=== PATIENT | female | born 1955 | race Caucasian/White ===

== ENCOUNTER 2020-05-26 22:59 | Inpatient (IN) | payer MEDICARE, OTHER, SELFPAY ==
[2020-05-26 23:00] VITALS: BP 167/113; PULSE 100; RESP 28; TEMP 36.3; O2SAT 88; BMI 42.0
[2020-05-26 23:02] VITALS: BP 161/91; PULSE 100; RESP 19; TEMP 36.3; O2SAT 95
[2020-05-26 23:19] VITALS: PULSE 97
--- NOTE | 2020-05-26 23:24 | EKG12_ITS ---
Test Reason : CP ADMISSION Blood Pressure : / mmHG Vent. Rate : 088 BPM Atrial Rate : 088 BPM P-R Int : 126 ms QRS Dur : 076 ms QT Int : 374 ms P-R-T Axes : -14 -62 012 degrees QTc Int : 452 ms Normal sinus rhythm Left axis deviation Nonspecific ST abnormality Abnormal ECG When compared with ECG of 26-MAY-2020 23:09, MANUAL COMPARISON REQUIRED, DATA IS UNCONFIRMED Confirmed by BEULAH PECK, EVER ([id number]), production editor JOSE MOMIN ([id number]) on 05/27/2020 1:52:16 PM Referred By: THOMAS Confirmed By:EVER RIOJAS MD
--- NOTE | 2020-05-26 23:25 | RAD_ITS ---
STUDY: X-RAY CHEST REASON FOR EXAM: Female, 65 years old. chest pain TECHNIQUE: PA and lateral COMPARISON: None. FINDINGS: The lungs demonstrate no focal lung consolidative changes. There is several right hilar nodular densities largest measuring approximately 1 cm. There is no demonstrated pleural abnormality. Normal size heart. Normal mediastinum and demetri. Normal visualized pulmonary arteries. Normal visualized aortic arch and descending thoracic aorta. There are diffuse degenerative changes of the visualized thoracic spine. Normal visualized ribs, clavicles, and shoulders. There is no demonstrated abnormality of the visualized soft tissue structures of the upper abdomen. RAD/Chest PA and Lateral IMPRESSION: No focal lung consolidative changes. Several right infrahilar nodular densities the image largest measuring 1 cm projecting over the right 9th rib. Recommend follow-up CT chest to exclude underlying pulmonary nodule. Electronically Signed: Slava Meraz MD at 0:00 EDT Tel , Service support ,
--- NOTE | 2020-05-26 23:26 | ED.DCSUM_ITS ---
History of Present Illness Chief Complaint: Shortness of Breath Informant: Patient Onset: Today Narrative: She stated she has been doing with heartburn for last 7 days. She had a heartburn attack this evening after dinner. She went to the bedroom and try to get comfortable after taking Pepcid and Tums. It was able to subside that she felt some substernal chest heaviness and anxiety and shortness of breath. She stated she felt like she was having anxiety attack and was trying to calm down with mental exercises. This started an hour and a half ago. It has slowly subsided. She is without symptoms currently. She denies any cardiac history. She does have a history of remote hypertension but is been off hypertension medicines for 1 year. Denies diabetes or high cholesterol. She does have obesity. Denies family history of her early coronary artery disease. Remote history of DVT postoperative approximately 15 years ago. Has never had a hypercoagulable problem since then. She is never had a recurrence. No recent long distance trips or DVT risk factors at this time other than remote DVT. She has never had a heart cath or stress test in the past or any heart problems. No history or family history of aortic dissection. Current severity is resolved. No home treatment. Does not take aspirin. Past Medical History - Allergies and Home Meds Allergies/Adverse Reactions: Allergies cephalexin [From Keflex] Allergy (Verified 05/26/20 22:59) Itching Primary Care Physician: Azeb Shaw MD [STAFF PHYSICIAN] - Prior records reviewed: Yes Past Medical History: - - Cervical cancer in remission, remote hypertension Surgical History: - - Reviewed Lives: With Family Smoking Status: Former smoker Alcohol: None Drugs: None Review of Systems General: Denies: Chills, Fever, Sweats Eyes: Denies: Visual changes - bilaterally, Diplopia ENT: Denies: Rhinorrhea, Sore throat Cardiovascular: Reports: Chest pain. Denies: Palpitations Respiratory: Reports: Dyspnea. Denies: Cough, Dyspnea on exertion Gastrointestinal: Denies: Abdominal pain, Nausea, Vomiting, Diarrhea, Melena, Hematochezia Genitourinary: Denies: Dysuria, Hematuria, Frequency Musculoskeletal: Denies: Back pain, Extremity Pain Skin: Denies: Rash, Wounds Neurological: Denies: Headache, Weakness, Numbness Psych: Reports: Anxiety Physical Exam Vital Signs/Narrative: Vital Signs Temp Pulse Resp BP Pulse Ox 05/26/20 23:19 97 05/26/20 23:02 97.3 F L 100 19 H 161/91 H 95 05/26/20 23:00 97.3 F L 100 28 H 167/113 H 88 General: Well nourished, Well developed, No Acute Distress Head: Normocephalic, Atraumatic Eyes: Perrl, EOMI ENT: Moist mucous membranes, No rhinorrhea Neck: Supple, Nontender Cardiovascular: Regular rate, Regular rhythm, No murmurs Respiratory: No distress, CTA bilaterally, Chest nontender Abdomen: Soft, Nontender, Nondistended, Normal bowel sounds Back: Nontender, Normal Inspection Extremities: Nontender, No edema Skin: Normal color, No rash Neurological: Alert, Oriented x3, Cranial nerves II-XII grossly intact, Normal Strength, Normal Sensation Psychological: Normal affect, Normal Mood Diagnostic/Tx/Re-eval - Medical Decision Making EKG obtained on arrival shows sinus tachycardia rate of 102. ST depression noted V4 through V6. No Previous to compare to. No STEMI. Lab work and chest x-ray obtained. Given dose of aspirin upon arrival. Did not give nitroglycerin as she has no pain. Lab work shows a troponin of 1.0. T CBC and BMP otherwise showed no acute abnormalities. Chest x-ray my interpretation shows chronic findings with no acute disease or CHF. No pneumothorax. Patient given a dose of Lovenox after discussing the case with the hospitalist. She has a non-ST elevation myocardial infarction. On reevaluation she is not having any pain or symptoms. Will be admitted - Critical Care Time Critical care time (excluding procedures): 75-104 minutes, Discussing w/Consultants, Arranging Admission or Transfer ED Disposition - Plan for ED Patient: Disposition: Acute Care Hospital [facility] Diagnosis: Acute coronary syndrome, Non-ST elevation myocardial infarction (NSTEMI)
[2020-05-26 23:29] VITALS: O2SAT 97
[2020-05-26] MEDS: Aspirin 81 MG TAB.CHEW 324 MG PO (23:35)
[2020-05-26 23:36] VITALS: BP 166/66; RESP 23; O2SAT 96
[2020-05-26 23:36] LABS: Absolute Lymphocyte Count 1.33 X10^3/uL (0.83-4.51); Basophil# 0.07 X10^3/uL; Basophil% 0.6 % (0-1); Eosinophil# 0.16 X10^3/uL; Eosinophils% 1.3 % (0-5); Hematocrit 44.7 % (37-47); Hemoglobin 14.4 g/dL (12.0-15.0); Lymphocyte # 1.33 X10^3/ul (4.0); Lymphocyte % 10.9 % (19-41); Mean Corp Hgb Conc 32.2 g/dL (32-36); Mean Corpuscular Hgb 29.8 pg (27.0-32.0); Mean Corpuscular Volume 92.5 fL (81-99); Mean Platelet Vol. 11.1 fl (6.2-12.0); Monocyte% 4.1 % (0-10); NRBC Flagged by Analyzer 0 % (0-5); Neutrophil # 10.01 X10^3/uL (2.7-7.7); Neutrophil % 82.1 % (47-70); Platelet Count 219 K/mm3 (150-450); RBC Distribution Width CV 13.9 % (11.6-14.6); RBC Distribution Width SD 47.6 fl (35.1-43.9); Red Blood Count 4.83 M/mm3 (4.2-5.4); White Blood Count 12.2 K/mm3 (4.4-11.0)
[2020-05-27] VITALS (23 sets, daily range): BP systolic 115–176; BP diastolic 37–101; PULSE 67–92; RESP 16–23; TEMP 36.3–36.9; O2SAT 95–99; BMI 46.7; BMI 46.8
[2020-05-27] LABS: Anion Gap 7 (5-15); BUN 25 mg/dL (7-18); BUN/Creat Ratio 23.4 RATIO (10-20); Calcium,Total 9.1 mg/dL (8.5-10.1); Chloride 104 mmol/L (98-107); Creatinine, Serum 1.07 mg/dL (0.55-1.02); EST Glomerular Filtration Rate 54 mL/min (>60); Est Glom Filt Rate - Afr Amer 66 mL/min (>60); Estimated Creatinine Clearance 40.35 ml/min; Glucose 209 mg/dL (74-106); Potassium 3.6 mmol/L (3.5-5.1); Sodium Level 140 mmol/L (136-145)
--- NOTE | 2020-05-27 00:49 | HP.PCM_ITS ---
Problem List (1) Non-ST elevation myocardial infarction (NSTEMI) Status: Acute (2) DM (diabetes mellitus), type 2 Status: Chronic (3) Hypertension Status: Chronic (4) Chronic kidney disease (CKD), stage III (moderate) Status: Suspected (5) GERD (gastroesophageal reflux disease) Status: Chronic (6) Morbid obesity with BMI of 40.0-44.9, adult Status: Chronic (7) History of uterine cancer Status: Resolved (8) History of cervical cancer Status: Resolved History of Present Illness Date of Admission: 05/27/20 Chief Complaint: Chest pressure, shortness of breath The patient is a 65 year old F presents today with chest heaviness and shortness of breath. Patient states that this feeling started out as heartburn-like but subsequently she began to have a heaviness on her chest and became short of breath. Symptoms began approximately 90 minutes prior to her arrival in the ER. Patient denies cardiac history but has had hypertension in the past. Patient states she lost 100 pounds and since then has not been on any blood pressure medication however in the past year she has put 30 pounds back on. 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 Remote history of DVT postoperatively approximately 15 years ago without recurrence. Patient currently sitting in bed in ER, reports symptoms have resolved. Patient on 2 L nasal cannula oxygen which she states has helped. Lovenox 100 mg subcu x1 given in ER, will continue on floor. Patient denies symptoms at this time. 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 Denies: Chest Pain, P alpitations Respiratory: Reports: Shortness of Breath - Resolved with O2 administration. Denies: Cough, Sputum production Gastrointestinal: Denies: Abdominal Pain, Nausea, Vomiting Genitourinary: Denies: Dysuria Musculoskeletal: Denies: Joint Pain, Joint Tenderness Skin: Denies: Rash, Wounds Neurological: Denies: Numbness, Tingling, Focal weakness Psychiatric: Reports: Anxiety - Associated with shortness of breath and chest heaviness. Denies: Depression, Homicidal Ideations, Suicidal Ideations Hematologic/ Lymphatic: Denies: Easy Bruising, Easy Bleeding VTE Information - Inpt Only VTE Present on Admission: No VTE Mechan Device Prophylaxis: SCD's VTE Pharm Prophylaxis ordered?: Yes Patient Problems: Active and Suspected Problems Non-ST elevation myocardial infarction (NSTEMI) (Acute) Chronic kidney disease (CKD), stage III (moderate) (Suspected) - Physical Exam Vitals/I&O's: Vital Signs Temp Pulse Resp BP Pulse Ox 97.3 F L 97 23 H 166/66 H 96 05/26/20 23:02 05/26/20 23:19 05/26/20 23:36 05/26/20 23:36 05/26/20 23:36 Oxygen Flow Rate (L/min) 1 Oxygen Delivery Method Nasal Cannula Weight: 230 lb Body Mass Index (BMI) 42.0 General: Alert, Oriented x3, Cooperative HEENT: Atraumatic, PERRLA, EOMI, Normocephalic Neck: Supple, No JVD, Negative Carotid Bruits Lungs: Clear to auscultation, Normal air movement, Tachypneic Cardiovascular: Regular rate, Regular Rhythm, Normal S1, Normal S2, No murmurs, - - EKG shows ST depression in leads III through 6 Abdomen: Bowel Sounds Present, Soft, Non Tender Extremities: No edema, Capillary Refill Less than 3 Seconds, Peripheral Pulses Normal Skin: No rashes, No breakdown Musculoskeletal: No Tenderness to Palpation of Joints or Extremities Neurological: Cranial nerves II-XII grossly intact Psych/Mental Status: Normal Affect, Appropriate, - - Patient tearful and overwhelmed when discussing diagnosis Laboratory Results 05/26/20 23:30: WBC 12.2 H, RBC 4.83, Hgb 14.4, Hct 44.7, MCV 92.5, MCH 29.8, MCHC 32.2, RDW Std Deviation 47.6 H, RDW Coeff of Lb 13.9, Plt Count 219, MPV 11.1, Immature Gran % (Auto) 1.000 H, Neut % (Auto) 82.1 H, Lymph % (Auto) 10.9 L, [place] % (Auto) 4.1, Eos % (Auto) 1.3, Baso % (Auto) 0.6, Absolute Neuts (auto) 10.0 H, Absolute Lymphs (auto) 1.33, Nucleated RBC % 0 05/26/20 23:30: Sodium 140, Potassium 3.6, Chloride 104, Carbon Dioxide 29.0, Anion Gap 7, BUN 25 H, Creatinine 1.07 H, Estim Creat Clear Calc 40.35, Est GFR (MDRD) Af Amer 66, Est GFR (MDRD) Non-Af 54 L, BUN/Creatinine Ratio 23.4 H, Glucose 209 H, Calcium 9.1, Troponin I 1.000 H* Assessment/Plan All Active Problems Acute coronary syndrome (Acute) Non-ST elevation myocardial infarction (NSTEMI) (Acute) History of cervical cancer (Resolved) History of uterine cancer (Resolved) 1. Non-ST elevation myocardial infarction -Initial troponin 1.0, will trend cardiac enzymes overnight -Initial EKG shows sinus rhythm with ST depression in leads III through 6. Patient will be admitted to PCU with telemetry -Echocardiogram ordered for the morning -Consult cardiology -Will keep n.p.o. overnight pending cardiology consult. -Continue subcu Lovenox. -Lipid profile, in a.m. -PT/INR, PTT ordered. 2. Diabetes mellitus type 2 new onset -Denies history, CMP glucose 209 -Hemoglobin A1c ordered -AC at bedtime blood sugar checks with sliding scale insulin ordered 3. Hypertension -Patient has remote history but currently not on any medication, BP in ER 170/96 -Carvedilol and lisinopril initiated. Hydralazine IV ordered as needed. 4. Chronic kidney disease, stage III-suspected -No prior labs available -CMP in a.m. 5. GERD -Continue pantoprazole 6. Morbid obesity with BMI of 40.0-44.9, adult -Consult nutrition 7. History of cervical and uterine cancer, in remission?no recurrence DVT prophylaxis-SCDs, subcu Lovenox This patient was seen by Daniela Gallegos NP-C under the supervision of Dr. Vickers.
[2020-05-27] MEDS: Enoxaparin 100 MG/ML Syringe SC (00:57)
--- NOTE | 2020-05-27 01:34 | ECHOCS_ITS ---
Reason For Study: Chest Pain Procedure This was a 2D Doppler, Color Flow transthoracic echocardiogram. The study was technically difficult. Contrast injection was performed. Exam performed portable in patient room. Left Ventricle Normal LV size. Moderate concentric left ventricular hypertrophy. Left ventricular systolic function is normal. The estimated ejection fraction is 65 %. Stage 2 diastolic dysfunction. No regional wall motion abnormalities noted. Right Ventricle Normal RV size. Normal systolic function. Atria The left atrium is mildly enlarged. Normal right atrium. Mitral Valve There is moderate mitral annular calcification. Mild-Moderate (1-2+) eccentric mitral valve insufficiency. Tricuspid Valve Normal tricuspid valve. Mild (1+) tricuspid valve insufficiency. Pulmonary artery systolic pressure is 35 mmHg. Aortic Valve Trisinus/trileaflet aortic valve. Mild focal aortic valve calcification. Pulmonic Valve The pulmonic valve is not well visualized. Great Vessels Normal aortic root. The pulmonary artery is normal size. Normal inferior vena cava. Pericardium/Pleural No pericardial effusion. Medication Diluted definity 2ml given slow IV push to enhance endocardial definition. MMode/2D Measurements & Calculations LVIDd: 3.6 cm IVSd: 1.4 cm Ao root diam: 2.4 cm LVIDs: 2.4 cm LVPWd: 1.3 cm FS: 35.1 % LAV(MOD-bp): 79.0 ml LA A4 area: 23.7 cm2 LA dimension(2D): 4.3 cm LAV(MOD-bp) Indexed: 37.3 ml/m2 LAV(MOD-sp2): 77.4 ml LAV(MOD-sp4): 70.3 ml Time Measurements MV dec time: 0.28 sec Doppler Measurements & Calculations MV E max jonah: 144.7 cm/sec Lat Peak E' Jonah: 4.5 cm/sec Med Peak E' Jonah: 3.4 cm/sec MV A max jonah: 87.8 cm/sec E/E' lat: 32.5 E/E' med: 42.3 MV E/A: 1.6 MV V2 max: 145.0 cm/sec MV P1/2t max jonah: 143.7 cm/sec Ao V2 max: 135.7 cm/sec MV max P.4 mmHg MV P1/2t: 82.7 msec Ao max P.4 mmHg MV V2 mean: 84.3 cm/sec MV dec slope: 508.5 cm/sec2 Ao V2 mean: 97.8 cm/sec MV mean P.3 mmHg Ao mean P.2 mmHg MV V2 VTI: 37.7 cm MVA(P1/2t): 2.7 cm2 Ao V2 VTI: 28.5 cm LV V1 max: 109.9 cm/sec PA V2 max: 60.8 cm/sec TR max jonah: 276.6 cm/sec LV V1 max P.8 mmHg TR max P.6 mmHg Interpretation Summary Normal LV size. Moderate concentric left ventricular hypertrophy. Left ventricular systolic function is normal. The estimated ejection fraction is 65 %. Stage 2 diastolic dysfunction. Contrast injection was performed. Ordering Physician: Cayla Vickers Referring Physician: Lennox Greenberg Performed By: Cathie Dewey RDCS, RVT
--- NOTE | 2020-05-27 01:34 | EKG12_ITS ---
Test Reason : CP Blood Pressure : / mmHG Vent. Rate : 102 BPM Atrial Rate : 102 BPM P-R Int : 134 ms QRS Dur : 078 ms QT Int : 350 ms P-R-T Axes : 066 -63 065 degrees QTc Int : 456 ms Sinus tachycardia Left axis deviation Nonspecific ST abnormality Abnormal ECG Confirmed by BEULAH PECK, EVER ([id number]), online content editor JOSE MOMIN ([id number]) on 05/27/2020 1:57:21 PM Referred By: DIMITRI Confirmed By:EVER RIOJAS MD
[2020-05-27 01:48] LABS: International Normalized Ratio 1.1; Prothrombin Time (Protime)PT. 13.4 SECONDS (11.7-14.9)
[2020-05-27 01:49] LABS: Partial Thromboplast Time 28.5 Seconds (24.1-36.2)
[2020-05-27] MEDS: 0.9% Normal Saline 1,000 ML 100 ML IV ×3 (02:02→22:48)
[2020-05-27] MEDS: Carvedilol 6.25 MG Tablet PO ×3 (02:03→20:36)
[2020-05-27] MEDS: Lisinopril 5 MG Tablet PO (02:03)
[2020-05-27] MEDS: Pantoprazole Sodium 20 MG Tablet PO ×3 (02:03→22:50)
[2020-05-27 05:41] LABS: Absolute Neutrophil Count 8.8 X10^3/uL (2.0-7.7); Basophil# 0.06 X10^3/uL; Basophil% 0.5 % (0-1); Eosinophil# 0.07 X10^3/uL; Eosinophils% 0.6 % (0-5); Hematocrit 43.1 % (37-47); Hemoglobin 13.9 g/dL (12.0-15.0); Lymphocyte % 16.6 % (19-41); Mean Corp Hgb Conc 32.3 g/dL (32-36); Mean Corpuscular Hgb 30.3 pg (27.0-32.0); Mean Corpuscular Volume 93.9 fL (81-99); Mean Platelet Vol. 10.9 fl (6.2-12.0); Monocyte# 0.57 X10^3/uL; NRBC Flagged by Analyzer 0 % (0-5); Neutrophil # 8.75 X10^3/uL (2.7-7.7); Neutrophil % 76.5 % (47-70); Platelet Count 233 K/mm3 (150-450); RBC Distribution Width CV 13.9 % (11.6-14.6); Red Blood Count 4.59 M/mm3 (4.2-5.4); White Blood Count 11.4 K/mm3 (4.4-11.0)
[2020-05-27 06:01] LABS: ALB/GLOB Ratio 0.8 RATIO (0.9-2.4); AST(SGOT) 53 U/L (15-37); Alanine Aminotransfer ALT/SGPT 25 U/L (13-56); Albumin, Serum 3.2 g/dL (3.2-5.0); Alkaline Phosphatase 90 U/L (45-117); Anion Gap 4 (5-15); BUN 20 mg/dL (7-18); BUN/Creat Ratio 22.8 RATIO (10-20); Calcium,Total 8.9 mg/dL (8.5-10.1); Chloride 107 mmol/L (98-107); Cholesterol 175 mg/dL (200); Creatinine, Serum 0.88 mg/dL (0.55-1.02); EST Glomerular Filtration Rate 69 mL/min (>60); Est Glom Filt Rate - Afr Amer 83 mL/min (>60); Estimated Creatinine Clearance 49.06 ml/min; Globulin 4.1 g/dL (2.2-4.2); Glucose 119 mg/dL (74-106); High Density Lipoprotein 39 mg/dL; Protein, Total 7.3 g/dL (6.4-8.2); Sodium Level 142 mmol/L (136-145); Triglycerides 175 mg/dL; Very Low Density Lipoprotein 35 mg/dL (5-40)
[2020-05-27 06:56] LABS: Bedside Glucose 122 mg/dL (70-110)
--- NOTE | 2020-05-27 07:38 | CON.PCM_ITS ---
Reason for Consult Date of Consultation: 05/27/20 Reason for Consultation: Heartburn and chest discomfort History of Present Illness: The patient is a 65 year old F who presented to the emergency room after experiencing heartburn. She says that this was pretty severe she thought she was having an anxiety attack. She has been having heartburn over the last 7 days also and has been taking Tums as well as Pepcid with no significant relief. She previously was diagnosed as hypertensive but has been off hypertensive medications for over a year. She did have a postoperative DVT in the left leg a number of years ago. She has had no dizziness or diaphoresis no near syncope or syncope. When she presented to the hospital she was noted to have abnormal EKG with ST changes. Her cardiac troponin enzymes were also noted to be abnormal. Cardiology was asked to see her. 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 Denies: Shortness of Breath, Orthopnea, PND, Peripheral Edema, Palpitations, Lightheadedness, Dizziness, Near Syncope, Syncope Respiratory: Denies: Cough, Sputum Production, Hemoptysis Gastrointestinal: Reports: Heart Burn. Denies: Hematemesis, Hematochezia, Melena Genitourinary: Denies: Dysuria, Hematuria Skin: Denies: Rash Neurological: Denies: Dizziness Psychiatric: Denies: Anxiety Endocrine: Denies: Unexplained Weight Loss Subjectve: Pleasant lady in no distress at this time Objective: Vital Signs Temp Pulse Resp BP Pulse Ox 98.1 F 76 18 115/37 L 98 05/27/20 06:40 05/27/20 06:40 05/27/20 06:40 05/27/20 06:40 05/27/20 07:14 Oxygen Flow Rate (L/min) 2 Oxygen Delivery Method Nasal Cannula Weight: 255 lb 4.725 oz Body Mass Index (BMI) 46.7 Intake and Output for Last 24 Hours 05/25/20 05/26/20 05/27/20 23:59 23:59 23:59 Intake Total 50 / 50 Balance 50 / 50 General: Awake, Alert, Oriented x 3 HEENT: PERRL, EOMI, Sclera Non Icteric Neck: Supple, Good ROM, No Lymph Node Enlargement Lungs: Clear to auscultation Cardiovascular: Regular Rhythm, Normal S1, Normal S2, No Murmurs, No Rubs, No Gallops Vascular: No Carotid Bruits, Normal Femoral Pulses, Normal Radial Pulses, Normal Dorsalis Pedal Pulse, Normal Posterior Tibial Pulses Abdomen: Bowel Sounds Present, Soft, Non Tender, No HSM, No Organomegaly Extremities: No Cyanosis, No Clubbing, No edema Neurological: No Focal Motor or Sensory Deficit 05/26/20 23:30: WBC 12.2 H, RBC 4.83, Hgb 14.4, Hct 44.7, MCV 92.5, MCH 29.8, MCHC 32.2, Plt Count 219, MPV 11.1, Immature Gran % (Auto) 1.000 H, Neut % (Auto) 82.1 H, Lymph % (Auto) 10.9 L, [place] % (Auto) 4.1, Eos % (Auto) 1.3, Baso % (Auto) 0.6, Absolute Neuts (auto) 10.0 H, Nucleated RBC % 0 05/26/20 23:30: Sodium 140, Potassium 3.6, Chloride 104, Carbon Dioxide 29.0, Anion Gap 7, BUN 25 H, Creatinine 1.07 H, Est GFR (MDRD) Af Amer 66, Est GFR (MDRD) Non-Af 54 L, BUN/Creatinine Ratio 23.4 H, Glucose 209 H, Calcium 9.1, Troponin I 1.000 H* 05/26/20 23:30: PT 13.4, INR 1.1, APTT 28.5 05/26/20 23:30: Magnesium 2.0 05/27/20 02:10: Troponin I 4.770 H* 05/27/20 05:36: WBC 11.4 H, RBC 4.59, Hgb 13.9, Hct 43.1, MCV 93.9, MCH 30.3, MCHC 32.3, Plt Count 233, MPV 10.9, Immature Gran % (Auto) 0.800, Neut % (Auto) 76.5 H, Lymph % (Auto) 16.6 L, [place] % (Auto) 5.0, Eos % (Auto) 0.6, Baso % (Auto) 0.5, Absolute Neuts (auto) 8.8 H, Nucleated RBC % 0 05/27/20 05:36: Sodium 142, Potassium 4.0, Chloride 107, Carbon Dioxide 31.0, Anion Gap 4 L, BUN 20 H, Creatinine 0.88, Est GFR (MDRD) Af Amer 83, Est GFR (MDRD) Non-Af 69, BUN/Creatinine Ratio 22.8 H, Glucose 119 H, Calcium 8.9, Total Bilirubin 0.40, Triglycerides 175, Cholesterol 175, LDL Cholesterol 101, VLDL Cholesterol 35, HDL Cholesterol 39 L 05/27/20 05:36: Troponin I 9.490 H* Rhythm: EKG: ECHO: Stress Test: Cardiac Cath: PCI: CT Surgery: Holter monitor: EPS: PPM: CXR: Chest CT Scan: Assessment/Plan 1. Non-ST elevation myocardial infarction * Patient presents with epigastric discomfort and heartburn with abnormal EKG and cardiac enzymes suggestive of non-ST elevation myocardial infarction. * My recommendation at this time would be to start aspirin * Start low-dose beta-sukumar * High intensity statin * Will consider patient for cardiac catheterization this morning. Risk benefits and alternatives have been explained to her she understands and agrees to proceed. * * * Addendum: Cardiac catheterization demonstrated the following. Left main coronary with mild calcification and no significant disease. Left anterior descending artery with moderate mid segment disease. Left circumflex artery with high-grade mid 99% stenotic lesion. Dominant right coronary artery with proximal to mid 80% stenosis. Preserved ejection fraction. Based on the above angiographic findings the patient would have PCI to the left circumflex artery and perhaps the right coronary artery. * Thank you for allowing me to participate in the care of your patient. Please don't hesitate to call if any issues arise.
[2020-05-27] MEDS: Aspirin E.C. 81 MG Tablet PO (07:42)
[2020-05-27 08:05] LABS: Hemoglobin A1c 5.8 % (3.8-5.6)
--- NOTE | 2020-05-27 08:15 | NURSING ---
gave report to mary AYON in labor operator
--- NOTE | 2020-05-27 09:20 | CL.D_ITS ---
Patient Name: JULIA MARQUEZ Study Date: 05/27/2020 Performing: Robert Nguyen MD Ht: 61.81 inches 157 cm : 1955 Wt: 255.74 lbs 116 kg Age: 65 Gender: female BSA: 2.12 PROCEDURE(S) PERFORMED FQ85-LCT/COR/LV CLINICAL PROFILE AND INDICATIONS Indications: Suspected CAD, ACS <= 24 hrs Heart Failure: None CONCLUSIONS Severe disease involving the mid left circumflex artery, moderate disease in the left anterior descen ding artery, moderately severe disease involving a dominant right coronary artery. RECOMMENDATIONS Referred for immediate PCI DESCRIPTION OF PROCEDURE The patient arrived to the procedure lab. The risks and benefits of the procedure as well as a full d escription of our services here and current unavailability of surgical backup were fully explained to the patient and/or their significant other prior to the catheterization. The Timeout was completed, verifying the correct patient and procedure. The patient's procedural site was prepped and draped in the usual fashion. Local anesthetic was given subcutaneously to right radial region with Lidocaine 2% . Using a modified Seldinger technique, arterial access was obtained via the right radial artery, a 6 Fr sheath was inserted. Right Coronary Artery selective angiography was then performed in multiple v iews using a 5 Fr. 4.0 [place] catheter. Left Coronary Artery selective angiography was performed in mu ltiple views using a 5 Fr. 4.0 [place] catheter. Left Ventriculography was performed in LEW projection using a 5 Fr. Pigtail catheter. LV to AO pullback pressures were then recorded. CORONARY ANGIOGRAPHY DOMINANCE: Right Dominant LEFT HEART ASSESSMENT Left Ventricular Ejection Fraction: by LV Gram 60 % Normal LV wall motion Normal Left Ventricular systolic function LEFT MAIN: Mild calcification, Angiographically normal LEFT ANTERIOR DESCENDING ARTERY: MID LAD: Mild luminal irregularities less than 30% DISTAL LAD: small vessel CIRCUMFLEX ARTERY: MID CIRC: 99 % Stenosis RIGHT CORONARY ARTERY: PROX RCA: Diffusely diseased up to 80 % DISTAL RCA: Mild luminal irregularities less than 30% VALVE FINDINGS: Mitral Valve Calcification Severe COMPLICATIONS PROCEDURE MEDICATIONS Fentanyl 50 mcg IV Versed 1 mg IV Versed 1 mg IV Versed 1 mg IV Oxygen: 2 L/min via nasal cannula Brilinta 180 mg PO @ 05/27/2020 09:14:32 Heparin diluted in 23cc Heparinized saline. Patient given 10cc IA of this solution. 05/27/2020 08:41: 45 Verapamil 2.5mg, Ntg 100mcgs, 2000 units of Heparin diluted in 23cc Heparinized saline. Patient give n 10cc IA of this solution. 05/27/2020 08:41:45 SUMMARY OF HEMODYNAMIC DATA Time AIR REST ECG 08:26:36 AO 131/71 (97) SA 08:56:13 LV 120/11, 21 09:05:18 LV 114/12, 25 09:05:32 LV 115/12, 20 09:06:53 LV 118/14, 24 09:06:59 LVp 117/12, 19 09:07:05 AOp 113/62 (85) 09:07:10 Signed By Robert Nguyen MD On 05/27/2020 09:19:36 Robert Nguyen MD
[2020-05-27] MEDS: Acetaminophen 325 MG Tablet 650 MG PO (11:00)
--- NOTE | 2020-05-27 11:55 | CASEMGMT ---
NANY DAI assessment: Face to Face with patient for initial transition planning/care coordination assessment. NANY DAI introduced self and role at [facility], pt voices understanding and consents to assessment. Pt is lying in bed in no distress. Pt is A/Ox4 and answers all questions appropriately. Care providers, pharmacy, and demographics verified. Presentation: Pt has had heartburn x1week and tonight began w/ chest heaviness and SOB. States she is also anxious Admitting dx: NSTEMI PCP: [facility] Specialists: Pt states no current specialists. Preferred Pharmacy: [facility] [place] Insurance: [facility] A/B, MMO Prescription Benefit: [facility] D-Envision Living Will/HPOA: Pt states does not have LW/HPOA but would like to complete AD's at this time. Martine ESPARZA aware, voices understanding. LNOK: Drake Ibrahim, Living Arrangements: Pt states lives with in 2 story home and states no concerns at home. Pt states is independent with ADL's. Transportation: Pt states drives self and states no transportation concerns. DME/HHC: Pt states no current DME or need for any DME. Pt states no hx of HHC or SNF. Pt states no concerns with going home at time of discharge. Pt is retired. Pt states does not smoke cigarettes but does drink ETOH occasionally. Pt states no further concerns/needs. CM to follow for any further discharge planning/needs. Advised pt to ask for CM if any further questions/concerns/needs arise, voices understanding. Pt Goal: Home Plan: [place] NANY DAI
--- NOTE | 2020-05-27 12:00 | EKG12_ITS ---
Test Reason : AM EKG Blood Pressure : / mmHG Vent. Rate : 068 BPM Atrial Rate : 068 BPM P-R Int : 142 ms QRS Dur : 080 ms QT Int : 454 ms P-R-T Axes : -08 -63 -64 degrees QTc Int : 482 ms Sinus rhythm with Premature atrial complexes Left axis deviation Nonspecific ST and T wave abnormality Prolonged QT Abnormal ECG When compared with ECG of 27-MAY-2020 12:18, MANUAL COMPARISON REQUIRED, DATA IS UNCONFIRMED Confirmed by BEULAH PECK, EVER ([id number]), multimedia editor JOSE MOMIN ([id number]) on 06/01/2020 1:54:10 PM Referred By: THOMAS Confirmed By:EVER RIOJAS MD
[2020-05-27 12:01] LABS: Bedside Glucose 128 mg/dL (70-110)
--- NOTE | 2020-05-27 13:37 | CL.I_ITS ---
Patient Name: JULIA MARQUEZ Study Date: 05/27/2020 Performing: Jesus Alberto Navarro MD Ht: 62 inches 157 cm : 1955 Wt: 256.1 lbs 116 kg Age: 65 Gender: female BSA: 2.12 PROCEDURE(S) PERFORMED [id number] W OR WO PTCA, SINGLE CORONARY ARTERY [id number] W OR WO PTCA, SINGLE CORONARY ARTERY CLINICAL PROFILE AND CO-MORBIDITIES Indications: Suspected CAD, ACS <= 24 hrs Heart Failure: None CONCLUSIONS Successful ADARSH to mLCX and mRCA RECOMMENDATIONS DESCRIPTION OF PROCEDURE The patient arrived to the procedure lab. The risks and benefits of the procedure as well as a full d escription of our services here and current unavailability of surgical backup were fully explained to the patient and/or their significant other prior to the catheterization. The Timeout was completed, verifying the correct patient and procedure. The patient's procedural site was prepped and draped in the usual fashion. Local anesthetic was given subcutaneously to right radial region with Lidocaine 2% Using a modified Seldinger technique,arterial access was obtained via the right radial artery, a 6Fr sheath was inserted. Right Coronary Artery selective angiography was then performed in multiple view s using a 5 Fr. 4.0 [place] catheter. Left Coronary Artery selective angiography was performed in multi ple views using a 5 Fr. 4.0 [place] catheter. Left Ventriculography was performed in LEW projection usi ng a 5 Fr. Pigtail catheter. LV to AO pullback pressures were then recorded. XB 3.0 Guide catheter was inserted and engaged into the LCA. BMW [place] Guide wire was advanc ed to the Circumflex. Emerge 2.5 x 12 Balloon catheter was inserted. Balloon catheter was advanced ac ross lesion in the circumflex, distal. PTCA balloon inflated at 6 atms for 8 secs. Angiogram performe d post balloon dilatation. Synergy 3.0 x 16 Drug Eluting stent was inserted. Drug Eluting stent was a dvanced across the lesion in the circumflex, distal. Angiogram performed pre stent deployment. Angiog jonelle performed post stent deployment. JR4 Guide catheter was inserted and engaged into the RCA. BMW Un iversal Guide wire was advanced to the RCA. Emerge 2.5 x 12 Balloon catheter was reinserted Balloon c atheter was advanced across lesion in the right coronary, mid. PTCA balloon inflated at 12 atms for 3 5 secs. Synergy 3.0 x 38 Drug Eluting stent was inserted. Drug Eluting stent was advanced across the lesion in the right coronary, mid. Angiogram performed pre stent deployment. The arterial sheath was pulled and a TR Band was applied for hemostasis INTERVENTION INFORMATION LESION SITE: Circumflex (Distal) Lesion Complexity: High/C, chronic total occlusion: No, lesion at bifurcation: Yes, thrombus present: No, lesion length: 14 mm, culprit lesion: Yes, Previously treated lesion: No Pre Stenosis: 95 % Pre intervention SHANNON flow: 3 PROCEDURE: Drug Eluting Stent with pre dilatation. Post Stenosis: 0 % Post intervention SHANNON flow: 3 Lesion Devices: Hammer .014 BMW [place] Straight 190cm Cardinal 6 Fr XB3.0 100cm Guide Catheter Pascual Sci EMERGE MR 2.50x12 BALLOON Pascual Sci Synergy MR ADARSH 3.00x16 LESION SITE: RCA (Mid) Lesion Complexity: High/C, chronic total occlusion: No, lesion at bifurcation: No, thrombus present: No, lesion length: 35 mm, culprit lesion: Yes, Previously treated lesion: No Pre Stenosis: 80 % Pre intervention SHANNON flow: 3 PROCEDURE: Drug Eluting Stent with pre dilatation. Post Stenosis: 0 % Post intervention SHANNON flow: 3 Lesion Devices: Hammer .014 BMW [place] Straight 190cm Pascual Sci EMERGE MR 2.50x12 BALLOON Medtronic 6 Fr JR4.0 100cm Guide Catheter Pascual Sci Synergy MR ADARSH 3.00x38 COMPLICATIONS No Complications PROCEDURE MEDICATIONS Fentanyl 50 mcg IV Versed 1 mg IV Versed 1 mg IV Versed 1 mg IV Oxygen: 2 L/min via nasal cannula Brilinta 180 mg PO @ 05/27/2020 09:14:32 Heparin diluted in 23cc Heparinized saline. Patient given 10cc IA of this solution. 05/27/2020 08:41: 45 Heparin 7000 unit(s) IV 05/27/2020 09:38:24 Verapamil 2.5mg, Ntg 100mcgs, 2000 units of Heparin diluted in 23cc Heparinized saline. Patient give n 10cc IA of this solution. 05/27/2020 08:41:45 IV Bolus: .9 NaCl 300 ml total 05/27/2020 10:18:37 SUMMARY OF HEMODYNAMIC DATA Time AIR REST ECG 08:26:36 AO 131/71 (97) SA 08:56:13 LV 120/11, 21 09:05:18 LV 114/12, 25 09:05:32 LV 115/12, 20 09:06:53 LV 118/14, 24 09:06:59 LVp 117/12, 19 09:07:05 AOp 113/62 (85) 09:07:10 Signed By Jesus Alberto Navarro MD On 05/28/2020 10:51:58 JesusA lberto Navarro MD
--- NOTE | 2020-05-27 14:17 | CRPHASE1 ---
Patient Communication PHII Cardiac Rehab Discussed with Patient:: Yes Guide to Cardiac Rehab Given to Patient:: Yes Cardiac Rehab Facility Choice List Given to Patient:: Yes Choice Program [facility] PHII:: Communication Given to CR, Refer to [facility] Proposal Editor:: Toshia Navarro - Interventionalist Refer Phase II Cardiac Rehab:: Yes Sessions:: 36 sessions - 3 days/wk, 12 weeks Cardiac Rehabilitation Info Cardiac Rehabilitation Program Information: Cardiac Rehabilitation is important for patients like you who are recovering from a heart problem. Cardiac rehabilitation programs are recognized as integral to the continued care of the patient with coronary heart disease. The cardiac rehabilitation program is designed to optimize a patient's physical, psychological, and social functioning. Health direct care staffer work in cardiac rehabilitation programs and assist you with getting the treatments you need to get stronger and healthier - like exercise, healthy eating habits, and medications. Cardiac rehabilitation has been show to help people with heart problems live longer and have better life enjoyment than people who do not go to cardiac rehabilitation. Please contact the Cardiac Rehabilitation Program at [facility] at in two weeks if you have not heard from them.
--- NOTE | 2020-05-27 14:19 | CRPH1.INSTRU ---
General Education CAD and cardiac anatomy and function:: Patient communicates acknowledgment Explanation of diagnoses and procedures:: Patient communicates acknowledgment Sign/Symptoms of NC:: Patient communicates acknowledgment Antiplatelet therapy: Patient communicates acknowledgment Proper use of NTG-SL: Patient communicates acknowledgment Emergency procedures and activation of EMS: Patient communicates acknowledgment Compliance of all prescribed medications: Patient communicates acknowledgment Smoking Patient Nicotine/Smoking Risk Factors Are:: Cigarettes Recommendations Include:: Previous smoker; encourage continued cessation Nicotine/Smoking Response Code:: Patient communicates acknowledgment Overweight/Obesity Patient Overweight/Obesity Risk Factors Are:: Obesity - > or = 30 Recommendations Include:: Weight loss of 5-10%, Reduced calorie diet, Exercise 5-7 times/week Overweight/Obesity:: Patient communicates acknowledgment Hypertension Recommendations Include:: Maintain BP <130/85, BP <130/80 if diabetic, DASH dietary guidelines, Decrease/maintain normal body weight, Moderation of ETOH Hypertension:: Patient communicates acknowledgment Diabetes Recommendations Include:: Maintain fasting blood sugars 70-110 md/dL, Maintain HgbA1c of 6% or less, Monitor blood sugar as prescribed, Diabetic dietary guidelines, Decrease/maintain body weight Diabetes:: Patient communicates acknowledgment Metabolic Syndrome Patient Metabolic Syndrome Risk Factors Are [3 of 5]:: Waist circumference > 35 [female] or 40 [male], High triglyceride >150, Hypertension, Low HDL <40 [male] or < 50 [female] Recommendations Include:: Reinforce compliance to risk factor modifications, Patient is diabetic, Encouraged follow-up with Primary Care Physician Metabolic Syndrome Response Code:: Patient communicates acknowledgment Sedentary Recommendations Include:: Aerobic exercise 5-7 times/week for 20-30 minutes continuously, Benefits of regular exercise, Discussed home walking program, Monitored Outpatient Cardiac Rehab Sedentary Response Code:: Patient communicates acknowledgment
--- NOTE | 2020-05-27 14:34 | CASEMGMT ---
Social Work SW received referral that pt would like to complete Advance Directives. SW met with pt and spouse Drake. Both requesting to make living will and health care POA. SW assisted both Pt and Drake in completing documents. Pt naming Drake as HCPOA. Pt choosing not to complete Gaurdianship section of HCPOA. Copy placed on pt chart and original given to patient. DENISE Prajapati
--- NOTE | 2020-05-27 15:05 | CASEMGMT ---
Per [facility] palliative screening tool, pt does not qualify for palliative c/s. Kristy AYON CM
--- NOTE | 2020-05-27 18:39 | PCM.HOSP.N ---
Hospitalist Note Was seen and examined earlier today, she appeared stable, her cardiac enzymes had elevated indicating a non-STEMI, patient underwent cardiac catheterization today which showed severe occlusive disease of the circumflex and right coronary artery, these were stented today, patient remained stable at the time of this dictation. Patient will be reevaluated tomorrow, echocardiogram showed a normal ejection fraction of 65%.
[2020-05-27] MEDS: Atorvastatin Calcium 80 MG Tablet PO (20:35)
[2020-05-27] MEDS: TICAGRELOR 90 MG TABLET PO (20:36)
--- NOTE | 2020-05-27 20:37 | NURSING ---
Pt requested medications early.
[2020-05-28 03:00] VITALS: PULSE 61
[2020-05-28] MEDS: 0.9% Normal Saline 1,000 ML 60 ML IV (04:58)
[2020-05-28 05:20] VITALS: BP 133/79; PULSE 72; RESP 16; TEMP 36.3; O2SAT 97
[2020-05-28 06:50] LABS: Hematocrit 38.7 % (37-47); Hemoglobin 12.4 g/dL (12.0-15.0); Mean Corpuscular Hgb 30.3 pg (27.0-32.0); Mean Corpuscular Volume 94.6 fL (81-99); Mean Platelet Vol. 11.4 fl (6.2-12.0); Platelet Count 191 K/mm3 (150-450); RBC Distribution Width CV 14.6 % (11.6-14.6); RBC Distribution Width SD 50.7 fl (35.1-43.9); Red Blood Count 4.09 M/mm3 (4.2-5.4); White Blood Count 9.1 K/mm3 (4.4-11.0)
[2020-05-28 07:01] VITALS: PULSE 82
[2020-05-28 07:21] LABS: ALB/GLOB Ratio 0.8 RATIO (0.9-2.4); AST(SGOT) 40 U/L (15-37); Alanine Aminotransfer ALT/SGPT 23 U/L (13-56); Alkaline Phosphatase 81 U/L (45-117); Anion Gap 7 (5-15); BUN 18 mg/dL (7-18); Calcium,Total 8.4 mg/dL (8.5-10.1); Chloride 108 mmol/L (98-107); EST Glomerular Filtration Rate 67 mL/min (>60); Est Glom Filt Rate - Afr Amer 81 mL/min (>60); Estimated Creatinine Clearance 47.97 ml/min; Globulin 3.8 g/dL (2.2-4.2); Glucose 141 mg/dL (74-106); Potassium 3.6 mmol/L (3.5-5.1); Protein, Total 6.8 g/dL (6.4-8.2); Sodium Level 141 mmol/L (136-145)
[2020-05-28 07:32] VITALS: O2SAT 98
[2020-05-28 09:00] VITALS: BP 121/61; PULSE 80; RESP 16; TEMP 36; O2SAT 97
[2020-05-28] MEDS: Aspirin E.C. 81 MG Tablet PO (09:38)
[2020-05-28] MEDS: Carvedilol 6.25 MG Tablet PO (09:39)
[2020-05-28] MEDS: TICAGRELOR 90 MG TABLET PO (09:39)
[2020-05-28] MEDS: Pantoprazole Sodium 20 MG Tablet PO (09:39)
[2020-05-28] MEDS: Lisinopril 5 MG Tablet PO (09:39)
--- NOTE | 2020-05-28 10:00 | EKG12_ITS ---
Test Reason : POST PCI Blood Pressure : / mmHG Vent. Rate : 068 BPM Atrial Rate : 068 BPM P-R Int : 146 ms QRS Dur : 082 ms QT Int : 416 ms P-R-T Axes : 037 -69 053 degrees QTc Int : 442 ms Normal sinus rhythm Left axis deviation Nonspecific ST and T wave abnormality Abnormal ECG When compared with ECG of 27-MAY-2020 02:04, MANUAL COMPARISON REQUIRED, DATA IS UNCONFIRMED Confirmed by BEULAH PECK, EVER ([id number]), magazine editor JOSE MOMIN ([id number]) on 06/01/2020 1:55:38 PM Referred By: STEFANIE Confirmed By:EVER RIOJAS MD
--- NOTE | 2020-05-28 10:21 | PN.CARD_ITS ---
Subjectve: Patient seen and evaluated. Appears to doing well. Objective: Vital Signs Temp Pulse Resp BP Pulse Ox 96.8 F L 80 16 121/61 H 97 05/28/20 09:00 05/28/20 09:00 05/28/20 09:00 05/28/20 09:00 05/28/20 09:00 Oxygen Flow Rate (L/min) 2 Oxygen Delivery Method Room Air Weight: 255 lb 4.725 oz Body Mass Index (BMI) 46.7 Intake and Output for Last 24 Hours 05/26/20 05/27/20 05/28/20 23:59 23:59 23:59 Intake Total 2605.01 / 2845.01 748.33 / 748.33 Balance 2605.01 / 2845.01 748.33 / 748.33 General: Awake, Alert, Oriented x 3 HEENT: PERRL, EOMI, Sclera Non Icteric Neck: Supple, Good ROM, No Lymph Node Enlargement Lungs: Clear to auscultation Cardiovascular: Regular Rhythm, Normal S1, Normal S2, No Murmurs, No Rubs, No Gallops 05/27/20 12:14: Troponin I 19.500 H* 05/28/20 06:26: WBC 9.1, RBC 4.09 L, Hgb 12.4, Hct 38.7, MCV 94.6, MCH 30.3, MCHC 32.0, Plt Count 191, MPV 11.4 05/28/20 06:26: Sodium 141, Potassium 3.6, Chloride 108 H, Carbon Dioxide 26.0, Anion Gap 7, BUN 18, Creatinine 0.90, Est GFR (MDRD) Af Amer 81, Est GFR (MDRD) Non-Af 67, BUN/Creatinine Ratio 20.0, Glucose 141 H, Calcium 8.4 L, Total Bilirubin 0.50 Rhythm: EKG: ECHO: Stress Test: Cardiac Cath: PCI: CT Surgery: Holter monitor: EPS: PPM: CXR: Chest CT Scan: Medical Necessity - Tobacco Use Smoking Status: Former smoker Tobacco Use: Non-smoker Assessment/Plan 1. Non-ST elevation myocardial infarction * Patient presents with epigastric discomfort and heartburn with abnormal EKG and cardiac enzymes suggestive of non-ST elevation myocardial infarction. * My recommendation at this time would be to start aspirin * Start low-dose beta-sukumar * High intensity statin * Cardiac catheterization demonstrated the following. Left main coronary with mild calcification and no significant disease. Left anterior descending artery with moderate mid segment disease. Left circumflex artery with high-grade mid 99% stenotic lesion. Dominant right coronary artery with proximal to mid 80% stenosis. Preserved ejection fraction. Based on the above angiographic findings the patient underwent angioplasty of the right coronary artery as well as the mid left circumflex artery. Patient did well overnight. Recommendation will be to discharge for outpatient follow-up and cardiac rehabilitation. * Thank you for allowing me to participate in the care of your patient. Please don't hesitate to call if any issues arise.
--- NOTE | 2020-05-28 12:31 | DCINST_ITS ---
- Discharge Diagnoses Current Active Problems: Current Active and Chronic Problems (Last Updated 05/28/20 @ 08:23 by Awa Roger) Non-ST elevation myocardial infarction (NSTEMI) (Acute 05/27/20) DM (diabetes mellitus), type 2 (Chronic) GERD (gastroesophageal reflux disease) (Chronic) Morbid obesity with BMI of 40.0-44.9, adult (Chronic) You will use the following diet at home:: No restrictions Your food should be the consistency of: Regular Your liquids should be the consistency of: Regular/Thin Discharge Activity: Return to Normal Activity Weight Bearing Status: Full weight bearing Allergies/Adverse Reactions: Allergies cephalexin [From Keflex] Allergy (Verified 05/26/20 22:59) Itching Medications to take at Discharge Aspirin E.C. [Ecotrin] 81 mg PO DAILY@0800 tablet 05/28/20 Atorvastatin Calcium [Lipitor] 80 mg PO QHS #30 tablet 05/28/20 Carvedilol [Coreg (Beta Catrachita)] 6.25 mg PO BID #60 tablet 05/28/20 Lisinopril [Zestril] 5 mg PO DAILY #30 tablet 05/28/20 Ticagrelor [Brilinta] 90 mg PO BID #60 tablet 05/28/20 The following prescriptions were given: Ticagrelor [Brilinta] 90 mg PO BID #60 tablet Transmission Status: Pending to [facility] Carvedilol [Coreg (Beta Catrachita)] 6.25 mg PO BID #60 tablet Transmission Status: Pending to [facility] Atorvastatin Calcium [Lipitor] 80 mg PO QHS #30 tablet Transmission Status: Pending to [facility] Lisinopril [Zestril] 5 mg PO DAILY #30 tablet Transmission Status: Pending to [facility] Primary Care Physician: Lennox Greenberg MD [Primary Care Provider] - Please follow up with your Primary Care Physician in: in 2-3 weeks Test Results: Test results from this visit will be discussed in further detail at your follow- up appointment, if applicable. Please Follow Up With: Robert Nguyen MD When: in three weeks or as directed
--- NOTE | 2020-05-28 13:25 | CASEMGMT ---
Pt to be sent home on Brilinta at discharge and med e-scribed to [facility] previously. Call to [facility] and per pharmacist, pt's co-pay is $414 and he states this is all deductible at this time. Pt is updated and provided with a Brilinta One Month Free coupon card, voices understanding. Pt voices no further questions/concerns/needs. Kristy AYON CM
--- NOTE | 2020-05-28 13:49 | PHA.DC.MC ---
Pharmacy Service has performed discharge medication reconciliation and counseling for this patient. The patient was counseled on the following discharge medications and changes in medications for homegoing were reviewed. 1. BRILINTA 2. LIPITOR 3. COREG 4. LISINOPRIL 5. TICAGRELOR The Reason for Use, instructions for use, and potential side effects were reviewed for all new medications. The patient's questions regarding all of their medications were answered. The patient was able to verbally demonstrate an understanding of their discharge medications. Home Medications Aspirin E.C. [Ecotrin] 81 mg PO DAILY@0800 tablet 05/28/20 Atorvastatin Calcium [Lipitor] 80 mg PO QHS #30 tablet 05/28/20 Carvedilol [Coreg (Beta Catrachita)] 6.25 mg PO BID #60 tablet 05/28/20 Lisinopril [Zestril] 5 mg PO DAILY #30 tablet 05/28/20 Ticagrelor [Brilinta] 90 mg PO BID #60 tablet 05/28/20 The patient's discharge medication list was reviewed for discrepancies and discrepancies were resolved.
--- NOTE | 2020-05-29 16:31 | PCM.DC.SUM ---
Discharge Date and Diagnosis - Problem List Patient Problems: Active and Suspected Problems (Last Updated 05/28/20 @ 08:23 by Awa Roger) Non-ST elevation myocardial infarction (NSTEMI) (Acute 05/27/20) Chronic kidney disease (CKD), stage III (moderate) (Suspected) Date of Admission: 05/27/20 Date of Discharge: 05/28/20 - Primary Discharge Diagnosis Acute Problems: Active Problems (Last Updated 05/28/20 @ 08:23 by Awa Roger) Non-ST elevation myocardial infarction (NSTEMI) #2 occlusive coronary artery disease circumflex coronary artery and right coronary artery #3 morbid obesity #4 GERD #5 essential hypertension Suspected Problems: Suspected Problems (Last Updated 05/28/20 @ 08:23 by Awa Roger) Chronic kidney disease (CKD), stage III (moderate) (Suspected) - Secondary Discharge Diagnosis Chronic Problems: Chronic Problems (Last Updated 05/28/20 @ 08:23 by Awa Roger) Atherosclerotic heart disease of [place] coronary artery without angina pectoris (Chronic) Essential (primary) hypertension (Chronic) DM (diabetes mellitus), type 2 (Chronic) GERD (gastroesophageal reflux disease) (Chronic) Morbid obesity with BMI of 40.0-44.9, adult (Chronic) Hospital Course and Treatment Operations: None Procedures: 2-D Echocardiogram, Cardiac catheterization - With drug-eluting stent placement circumflex artery and right coronary artery Summary of Care Provided: The patient is a 65 year old F was seen in the emergency room at [facility] with chief complaint of a heartburn-like symptom that was unrelieved after taking Pepcid and Tums. She also complained about some substernal chest heaviness and some mild shortness of breath. Work-up in the emergency room included an EKG which showed a sinus tachycardia, there is some ST depression noted in the lateral precordial leads. Work showed a troponin of 1, CBC and BMP showed no acute abnormalities. Chest x-ray is unremarkable. Patient was given a dose of Lovenox and was admitted for non-ST elevation myocardial infarction. She was admitted to PCU and seen in consultation by cardiology. Echocardiogram was performed and this showed a normal EF. Patient underwent a cardiac catheterization which showed occlusive coronary disease in the circumflex and right coronary artery, ADARSH x2 was placed. Patient tolerated the procedure well and had no untoward events. On 05/28/2020, patient was seen and examined: On examination she appeared in good health and spirits, she does not appear to be in any distress. Vital signs as documented. Skin warm and dry and without overt rashes. Neck without JVD, thyroid appears normal, trachea is midline, neck is supple. Lungs clear, normal air movement was noted. Heart exam notable for regular rhythm, normal sounds and absence of murmurs, rubs or gallops. Abdomen unremarkable and without evidence of organomegaly, masses, or abdominal aortic enlargement, bowel sounds are present in all 4 quadrants, no abdominal tenderness was noted. Extremities nonedematous, no cyanosis was noted, no clubbing was noted. Neuro: Cranial nerves II through XII are grossly intact, no focal motor deficits were noted, sensation to light touch and pinprick is intact, motor exam 5/5 throughout. Psych: Patient is alert and oriented x3, she does not appear anxious or depressed, she does not appear agitated. Patient appears stable for discharge on 05/28/2020. Patient Problems: Active and Suspected Problems (Last Updated 05/28/20 @ 08:23 by Awa Roger) Non-ST elevation myocardial infarction (NSTEMI) (Acute 05/27/20) Chronic kidney disease (CKD), stage III (moderate) (Suspected) - Physical Exam Vitals/I&O's: Vital Signs Temp Pulse Resp BP Pulse Ox 96.8 F L 80 16 121/61 H 97 05/28/20 09:00 05/28/20 09:00 05/28/20 09:00 05/28/20 09:00 05/28/20 09:00 Oxygen Flow Rate (L/min) 2 Oxygen Delivery Method Room Air Weight: 115.8 kg Body Mass Index (BMI) 46.7 Intake and Output for Last 24 Hours 05/27/20 05/28/20 05/29/20 23:59 23:59 23:59 Intake Total 2605.01 / 2845.01 1844.33 / 1844.33 Balance 2605.01 / 2845.01 1844.33 / 1844.33 Microbiology Past 72 Hours 05/27/20 01:05 Mucosa - Nose SARS-CoV-2 Antigen (Rapid) - Final Discharge Activity: Return to Normal Activity Weight Bearing Status: Full weight bearing Home Medications: Medications to take at Discharge Aspirin E.C. [Ecotrin] 81 mg PO DAILY@0800 tablet 05/28/20 Atorvastatin Calcium [Lipitor] 80 mg PO QHS #30 tablet 05/28/20 Carvedilol [Coreg (Beta Catrachita)] 6.25 mg PO BID #60 tablet 05/28/20 Lisinopril [Zestril] 5 mg PO DAILY #30 tablet 05/28/20 Ticagrelor [Brilinta] 90 mg PO BID #60 tablet 05/28/20 Following Prescriptions Were Given to Patient: Ticagrelor [Brilinta] 90 mg PO BID #60 tablet Transmission Status: Received by [address] Carvedilol [Coreg (Beta Catrachita)] 6.25 mg PO BID #60 tablet Transmission Status: Received by [address] Atorvastatin Calcium [Lipitor] 80 mg PO QHS #30 tablet Transmission Status: Received by [address] Lisinopril [Zestril] 5 mg PO DAILY #30 tablet Transmission Status: Received by [address] Primary Care Physician: Lennox Greenberg MD [Primary Care Provider] - Please follow up with your Primary Care Physician in: in 2-3 weeks Please Follow Up With: Robert Nguyen MD When: in three weeks or as directed Disposition: Home Minutes spent on discharge:: 32 Patient Condition:: Stable Medical Necessity - Tobacco Use Smoking Status: Former smoker Tobacco Use: Non-smoker Meaningful Use Info Meaningful Use Diagnoses (Choose all that apply): AMI - AMI/Post PCI/Angioplasty Aspirin given w/in 24hrs of arrival?: Yes ASA at discharge?: Yes Antiplatelet Therapy at Discharge:: Yes Statins at discharge?: Yes Ayaz/ARB at discharge?: Yes Beta Catrachita at discharge?: Yes Done w/ Acute [place] measure.: Yes Documented LVEF (%): 65 Inpatient E&M: [id number] Disch Hosp
== END 2020-05-28 13:50 | disposition home or self-care (01) | DRG 247 ==
LOC: ED 05-27 00:42 → PCU 05-27 00:45
PROVIDERS: Specialist; Admitting Provider Family Medicine; Emergency Provider Emergency Medicine; PCP Internal Medicine; Visit Provider Internal Medicine
DX: I21.4 Non-ST elevation (NSTEMI) myocardial infarction (principal); Z68.42 Body mass index [BMI] 45.0-49.9, adult; I25.10 Atherosclerotic heart disease of native coronary artery without angina pectoris; E11.9 Type 2 diabetes mellitus without complications; K21.9 Gastro-esophageal reflux disease without esophagitis; E66.01 Morbid (severe) obesity due to excess calories; Z85.41 Personal history of malignant neoplasm of cervix uteri; Z85.118 Personal history of other malignant neoplasm of bronchus and lung; Z85.42 Personal history of malignant neoplasm of other parts of uterus; Z86.718 Personal history of other venous thrombosis and embolism; Z87.891 Personal history of nicotine dependence; Z92.3 Personal history of irradiation
CPT/HCPCS: 36415; 71046; 80048; 80053; 80061; 82962; 83036; 83735; 84484; 85025; 85027; 85610; 85730; 87426; 92928; 93005; 93306; 93458; 97802; 99152; 99153; 99251; 99285; 99406; J7030; Q9957; Q9967; A4216; C1725; C1769; C1874; C1887; C1894; C8929; C9600; G0463

== ENCOUNTER → 2020-06-15 10:14 | Outpatient (CLI) | payer MEDICARE, OTHER, SELFPAY ==
[2020-05-27 01:46] VITALS: BMI 46.7
--- NOTE | 2020-06-15 10:22 | PCM.CR.HP2 ---
CR - History & Physical - General Arrival date:: 06/15/20 Arrival time:: 10:23 Date of Referral:: 05/27/20 Date of CR Evaluation:: 06/15/20 Referring Physician: Dr. Robert Nguyen Primary Diagnosis: Z95.5 PCI with stent - History of Present Cardiac Event Onset Date: Enter Onset Date of cardiac illnesses in Comment field below PTCA or coronary stenting:: Yes - 05/27/2020 - Medications Home Medications: Ambulatory Orders Medication Instructions Recorded Aspirin E.C. [Ecotrin] 81 mg PO DAILY@0800 tablet 05/28/20 Atorvastatin Calcium [Lipitor] 80 mg PO QHS #30 tablet 05/28/20 Lisinopril [Zestril] 5 mg PO DAILY #30 tablet 05/28/20 Ticagrelor [Brilinta] 90 mg PO BID #60 tablet 05/28/20 metoprolol tartrate 25 mg tablet 25 mg PO BID #60 tablet 06/02/20 - Allergies Allergies/Adverse Reactions: Allergies cephalexin [From Keflex] Allergy (Verified 05/26/20 22:59) Itching carvedilol Adverse Reaction (Intermediate, Verified 06/02/20 10:48) diarrhea - Sleep Disorder Evaluation Hx of Sleep Apnea: No Do you snore loudly (louder than talking or can be heard through closed doors)?: No Do you often feel tired/ fatigued/ sleepy during daytime?: No Has anyone observed you stop breathing during sleep?: No History of Hypertension (for STOP score): Yes STOP Results: Negative Advanced Directives - Advanced Directives 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 Living Will: Yes Advance Directives Information Provided: Yes Advance Directives on File: Yes DNR Order?:: No Past Medical History - Covid-19 Screening Fever: No Unexplained muscle aches: No Current respiratory symptoms: No Upper respiratory infections symptoms: No Gastro-intestinal symptoms: No [id number] symptoms: No Has tested positive for COVID-19 in last 30 days: No Had contact w/person w/symptoms or Covid-19 (+) last 14 days: No Has High Risk Exposures ID'd by Health dept/Inf Control team: No 65 years or older:: Yes Lives in Assisted Living facility:: No Has a chronic lung disease or moderate to severe asthma:: No Has a serious heart condition:: Yes Immunocompromised:: No Severely obese (Body Mass Index of 40 or higher):: Yes Diabetic:: Yes Has chronic kidney disease undergoing dialysis:: Yes Has liver disease:: No - Past Medical Illness Medical History: Past Medical History (Last Updated 05/30/20 @ 11:39 by Awa Roger) Non-ST elevation myocardial infarction (NSTEMI) (Resolved) Onset Date: 05/26/20 I21.4 Atherosclerotic heart disease of [place] coronary artery without angina pectoris (Chronic) I25.10 Essential (primary) hypertension (Chronic) I10 DM (diabetes mellitus), type 2 E11.9 GERD (gastroesophageal reflux disease) K21.9 Morbid obesity with BMI of 40.0-44.9, adult E66.01, Z68.41 Chronic kidney disease (CKD), stage III (moderate) N18.30 Acute coronary syndrome Onset Date: 05/27/20 I24.9 - Past Surgical History Surgical History: Past Surgical History (Last Updated 05/28/20 @ 08:23 by Awa Roger) History of coronary artery stent placement (Resolved) Onset Date: 05/27/20 Z95.5 PCI-ADARSH-Mid RCA w/ 3.0 x 38 mm Synergy Stent and ADARSH-Distal LCx w/ 3.0 x 16 mm Synergy Stent 05/27/20 Surgical History: hysterectomy - With bilateral salpingo-oophorectomy, tonsillectomy, - - bladder surgery with mesh Social History - Smoking History Smoking Status: Former smoker Years Smokin Packs Smoked per Day: 0.5 Hx Smoking Cessation Date: 03/06/20 Hx Tobacco Use: Yes - Alcohol Use Alcohol Usage: Yes - socially - Substance Abuse Hx Substance Use: No - Occupation Occupation (List type of work in comments):: Retired - Hobbies, Recreation, Social Activities Hobbies: Other - gardening, cooking,sewing Recreational Activities: I am able to engage in a few activities Social Environment - Status Marital Status: - Current Living Arrangements Living Environment:: Spouse - Children How many children do you have?: 1 Do any of your children live nearby?: Yes - Safety Do you feel safe in your surroundings?: Yes - Assistance Do you need any assistance at home?: no Review of Systems - Review of Systems Hints: Right click = Denies (Slash). Left click = Reports ([place]) Review of Present Symptoms: Reports: Shortness of Breath with Exertion, Fatigue, Appetite - Normal, Appetite - Special Diet, Sleep - Normal. Denies: Shortness of Breath at Rest, PVD, Operative Discomfort, Angina, Wound Healing, Dizziness/Lightheadedness, Heart Arrhythmia/Irregularities, Sexual Changes - Pain Is Patient Pain Free?: Yes Risk Factor Assessment - Vital Signs Pulse Ox: 96 Blood Pressure: 118/66 - Pulse Pulse Rate: 69 Pulse Rhythm: Regular - Hypertension How long have you been treated?: 1 month - Stress Stress: Home/Family - Obesity Height: 5 ft 2 in Weight:: 115.666 kg Weight in Pounds: 255.0 lbs Body Mass Index (BMI): 46.6 Nutritional Referral for Obesity: Yes - Physical Inactivity Physical Inactivity: Recreational activity - Risk Stratification Risk Guidelines: Moderate Risk: Risk Factor for Smoking, Risk Factor for Dyslipidemia, Risk Factor for Hypertension, Risk Factor for Sedentary Lifestyle, Risk Factor for Depression, Highest Risk: Risk Factor for Diabetes, Risk Factor for Obesity - For Smoking Smoking Risk Guidelines: Smoking Low Risk: None or quit greater than 6 months ago. Smoking Moderate Risk: Smoker or quit 6 months or less ago. Smoking High Risk: Smoker - For Dyslipidemia Dyslipidemia Risk Guidelines: Low Risk: Moderate Risk: High Risk: 15-25% fat 25.1-29% fat >/= 30% fat. <7% sat fat 7-9% sat fat >9% sat fat. <150 mg chol 150-299 mg chol >/= 300 mg chol. LDL <100 LDL 100-129 LDL >/= 130. Chol/HDL ratio <5.0 Chol/HDL ratio 5.0-6.0 Chol/HDL ratio >6.0. Triglycerides <100 Triglycerides 100-149 Triglycerides >/= 150 - For Diabetes Mellitus Diabetes Risk Guidelines: Diabetes Low Risk: HgA1c <6.5% and/or FBG <120. Diabetes Moderate Risk: HgA1c 6.6-7.9% and/or FBG 120-180. Diabetes High Risk: HgA1c >/= 8% and/or FBG >180 - For Obesity/Overweight Obesity/Overweight Risk Guidelines: Obesity Low Risk: BMI <25.0. Obesity Moderate Risk: BMI 25-29.9. Obesity High Risk: BMI >/= 30.0 - For Hypertension Hypertension Risk Guidelines: Hypertension Low Risk: Systolic <120 and Diastolic <80. Hypertension Moderate Risk: Systolic 120-139 and Diastolic 80-89. Hypertension High Risk: Systolic >/= 140 and Diastolic >/= 90 - For Sedentary Lifestyle Sedentary Lifestyle Risk Guidelines: Sedentary Lifestyle Low Risk: >/= 1,500 kcal/week. Sedentary Lifestyle Moderate Risk: 700-1,499 kcal/week. Sedentary Lifestyle High Risk: < 700 kcal/week - For Depression Depression Risk Guidelines: Depression Low Risk: Not clinically depressed. Depression Moderate Risk: Mildly depressed. Depression High Risk: Clinically depressed Motivation - Motivation to Participate On a scale of 1 to 10, how prepared are you to commit to attending program?: 9 What do you see as barriers to successfully being able to complete the program?: none What do you see as the benefits of succesfully completing the program? In other words, what do you hope to get out of participating in the program?: improved heallth Are there issues you are dealing with that will interfere with completing the program?: no Do you have a spouse or signficant other, family or friends who will help support you to complete the program?: spuose
--- NOTE | 2020-06-15 10:23 | CR.ITP_ITS ---
Diagnosis - General Information Admitting Diagnosis: PCI with stent Barriers to Learning: No Barriers Stage of change r/t lifestyle modifications:: Contemplation Gave educational material for:: Treating Heart Disease, Emotions & Heart Disease, Stress Management & Relaxation, Sleep Disorders & Heart Disease, How The Heart Works, What it means to have Heart Disease, How Coronary Artery Disease is Diagnosed, Heart Procedures, What Heart Medications Do, Risk Factors & Modifications, Living an Active Life, Nutrition - Education/Goals Cardiac Rehabilitation Goals: 1. Maintain the individual as the primary focus of care. 2. To improve the patient's quality of life. 3. Identification of cardiac risk factors and provide cardiac risk factor management. 4. Enhance the psychosocial status of the patient. 5. Reconditioning enough to allow the patient to resume customary activities. 6. Control symptoms of cardiac disease Personal Goals: Initial Assessment: Improve management of stress and emotions, Improve energy level, Participate in home exercise program, Get back to work, or to resume activities faster, Improve knowledge of cardiac disease, Improve muscle strength and endurance, Improve diet and eating habits (eat healthier), Control risk factors (learn risk factor modification), Other goal: Scale for measuring improvement of personal goals: Enter appropriate number in Comments. 2 = Unchanged. 3 = Slightly Better. 4 = Moderate Improvement. 5 = Met my Goal - Diagnosis & Disease Process Plan/Interventions: Assist Pt to ID & engage in lifestyle modification to reduce CVD risk, Instruct on individual risk factors, Review symptoms of angina & emergency actions, Review secondary diagnosis & identify educational needs., Other see comment 30 day Reassessments:: Not Met 30 day Reassessments:: Not Met 30 day Reassessments:: Not Met 30 day Reassessments:: Not Met Final Reassessments:: Not Met - Safety Referral to Physical Therapy: No Referral to [facility] Case Management: No Fall Risk Assessed:: Yes Assistive Devices:: None Exercise - Initial Assessment - Visit Date of Eval: 06/15/20 - initial eval Mets: Pre-: >3 METS for 30 minutes by discharge, >5 METS for 30 minutes by discharge, >7 METS for 30 minutes by discharge, Unable to meet goal due to: (see comment below) - Physician Prescribed Exercise Modalities: Treadmill, Biodyne, Rower, Airdyne, NuStep, SciFit Frequency: 3x/week for 12 weeks [36 sessions] Intensity: 60-80% of age predicted maximum heart rate reserve Current METSs:: 2.0 Target Heart Rate:: 100-130 EKG Type: NSR with ST and T wave abnormality - Outcomes & Goals Goals:: Verbalizes understanding of THR, RPE & goal METS by session 6, Documents in home exercise log/reports 30 min aerobic 5 day/wk by DC, Demonstrates accurate pulse taking by DC, Other additional outcome/goals: see below - Intervention & Plan Exercise Program Goals: Instruct on personal THR & RPE, Instruct on MET level & personal MET goal, Show patient to take own pulse /validate performance until accurate, Instruct on home exercise, Other additional plan/int - Physical Activity Home Exercise Physical Activity - Home Exercise: Safe Exercise, Warm-up, Self-monitoring, Cool-Down, Home Exercise > 30 min Daily, Sitting Time <3 hours/daily - Outcomes & Goals Outcomes/Goals: Demonstrates correct Warm-up/exercise Cool-Down (S3) if = 2.5 METs, Verbalizes symptoms of exercise intolerance by Session 3 (S3), Demonstrate safe equipment use (S3) & follows exercise prescrition (6), Other: See below - Intervention & Plan Plan/Intervention: Instruct warm-up & cool-down if exercising at > 2 METs, Instruct on symptoms of exercise intolerance & actions to take, Instruct & monitor on saf, Assess intial functional capacity & safety risk, Other See below Nutrition - Initial Assessment - Program Goals Nutrition Program Goals: LDL <100 optimal. 100 - 129 Near optimal. 130 - 159 Borderline High. 160 - 189 High. Total Cholesterol <200 desirable. 200 - 239 Borderline High. >/= 240 High. HDL < 40 Low >/=60 High. Triglycerides <150 desirable. <199 optimal. VlDL 5 - 40. HgbA1C <7%. BMI <25 Patient has diagnosis of Hyperlipidemia (ICD E78)?: No - Cholesterol/Lipids Determine presence & major risk factors that modify LDL goal: Cigarette smoking, Hypertension or hypertensive medication, Low HDL cholesterol <40 mg/dL*, Family history of premature CHD in Male < 55 years: female <65 yearsFa, Age men > 45 years; women >/= 55 years Outcomes/Goals: Pt IDs own risk factors & lifestyle modifications by Session 10, Verbalizes symptoms of angina & response by session 3., Pt independently manages, Other Additional Outcomes/Goals: Intervention/Plan: Advocate for lipid panel cholesterol medication if applicable, Instruct on personal lipid levels & lipid goals/NCEP guidelines, Instruct on cholesterol, Other additional plan/int Referral to dietitian:: No - declines - Diabetes (Other Core Measures) Diabetes Type: Not Applicable - Pt states she is no longer diabetic Referral to Diabetic Clinic:: No - declines Outcomes/Goals:: Able to state symptoms of, Able to state, Able to state, Other additional Intervention/Plan:: Instruct on, Refer to, Instruct on, Other - Weight Mgt (Other Care) Height: 5 ft 2 in Weight:: 115.666 kg BMI: 46.6 Diagnosis High BMI/Morbid Obesity BMI> 35% ICD-10 Z68: Yes Outcomes/Goals: Pt sets, maintains & shows weight loss goal & trend during rehab, Other additional outcomes/goals Intervention/Plan: Instruct on ideal BMI & set weight loss goal w/patient, Assist pt to ID & incorporate diet changes for weight loss by S9, Refer to Structured Weight Loss program as appropriate, Encourage goal of using 250- 300dcal per session for weight loss, Other additional plan/interventions - Healthy Eating Habits Will attend diet classes:: Yes Outcomes/Goals:: Consume diet rich in vegs,fruits,whole grain/high fiber,fish,lean meat, Limit sat/trans fats,cholesterol & added salts & sugars, Other additional outcome/goals: Intervention/Plan:: Assess current eating habits, Other Additional plan/interventions - Education Gave educational materials for:: Signs & symptoms of hypoglycemia, Signs & symptoms of hyperglycemia, Relate diabetes to coronary artery disease, Healthy eating Medical - Initial Assessment - Visit Date of Eval: 06/15/20 - initial eval - Medication Compliance Preventative Medication(s):: Aspirin, JOY inhibitor, Ticagrelor/P2Y12 inhibitor, Statin/lipid H/O mental health issues: depression, anxiety, or addiction?: No Doesn?t believe in the benefits of treatment?: No Believes medications are unnecessary or harmful?: No Has a concern about medication side effects?: No Expresses concern over the cost of medications?: No Outcomes/Goals: Verbalizes medications,desired effect & common side effects @ DC, Pt self-reports following medication regimen, Keeps card in wallet w/medications listed by DC, Other additional outcome/goals: - Tobacco Use Tobacco Use: Non-smoker - reformed smoker How long ago did you quit using tobacco products?: Less than 6 months ago Do you use smokeless tobacco?: No - Hypertension Hypertension Diagnosis:: Hypertension ICD-10 I10 [place] [employer] Hypertension Guidelines: [place] [employer] Hypertension Guidelines. Normal BP Less than 120/80. Elevated BP 120/80. Hypertension Stage 1: BP 130-139/80-89. Hypertesnion Stage 2: BP 140 or higher/90 or higher. Hypertension Crisis: BP higher than 180/120 Outcomes/Goals: Able to verbalize/achieve optimal blood pressure <130/80, Incorporates diet changes & exercise for blood pressure control by DC, Other additional outcomes/goals Interventions/plan: Instruct on optimal blood pressure, hypertension & medications, Instruct on effects of sodium, alcohol, stress, exercise &hypertension, Other additional plan/interventions - Tobacco Cessation Referral Smoking Cessation Referral:: No Individual Education/Counseling:: No Education Schedule Given:: Yes Psychosocial - Initial Assess - VIsit Date of Eval: 06/15/20 - initial eval Not Applicable: No - Target Goals Target Goals: Assess presence or absence of depression. Using a valid screening tool, maximizes coping skills. Positive support system - Psychosocial Test phq-9 Severity: Severity. 1-4 Minimal Depression. 5-9 Mild Depression. 10-14 Moderate Depression. 15-19 Moderately Sever Depression. 20-27 Severe Depression. Rule: - Outcomes/Goals: See list Psychosocial Outcomes/Goals:: ID's personal stressors & 2 strategies to manage stress by discharge, Other Additional outcome/goals: - Intervention/Plan: See List Interventions/Plan:: Assess stressors,coping strategies & signs of derpression on admission, Instruct/assist pt to develop coping & personal stress Mgt strategies, Refer to Behavioral Health if appropriate, Refer to Physician if appropriate, Instruct patient to recognize signs & symptoms of depression, Instruct patient to recog, Other additional plan/intervention Patient Health Questionnaire Initial Assessment 1. Little interest or pleasure in doing things: Not at all 2. Feeling down, depressed, or hopeless: Not at all 3. Trouble falling or staying asleep, or sleeping too much: Not at all 4. Feeling tired or having little energy: Several days 5. Poor appetite or overeating: Several days 6. Feeling bad about yourself -- or that you are a failure or have let yourself or your family down: Not at all 7. Trouble concentrating on things, such as reading the newspaper or watching television: Not at all 8. Moving or speaking so slowly that other people could have noticed. Or the opposite - being so fidgety or restless that you have been moving around a lot more than usual: Not at all 9. Thoughts that you would be better off , or of hurting yourself in some way: Not at all How difficult have these problems made it for you to do your work, take care of things at home, or get along with other people?: Somewhat difficult Total Score: 2 HÉCTOR-Q SV Test - Statements CAD is a disease of the arteries in the heart: False Examples of risk factors for heart disease: True Angina is chest pain or discomfort: I Don't Know The benefits of resistance training include: True Eating more meat and dairy products: False Anti-platelet medications such as aspirin are important: True The only effective way to manage stress: False An exercise warm-up slowly increases heart rate: True Prepared, processed foods usually have high sodium: True Depression is common after a heart attack: True The statin medications lower cholesterol: True To control blood pressure, lower the amount of sodium: True If someone gets chest discomfort during walking: False Transfats are partially hydrogenated vegetable oils: True Sleep apnea that is not treated increases the risk: False To control cholesterol, one should become a vegetarian: False Someone knows if he/she is exercising at the right level: True Diabetes cannot be prevented with exercise & health eating: False Stress is a large risk for heart attack: True A diet that can help lower blood pressure is rich in: True - Total Score Total Correct Responses: 19 Self-Efficacy Initial Assessment We would like to know how confident you are in doing certain activities. Please select your confidence level for:: Select your confidence level for the following using the scale 1-10 where 1 is not at all confident and 10 is totally confident. Your score is the average of all 6 responses. Fatigue: How confident are you that you can keep the fatigue caused by your disease from interfering with the things you want to do? Select Number: 6 Physical Discomfort or Pain: How confident are you that you can keep the physical discomfort or pain of your disease from interfering with the things you want to do? Select Number: 6 Emotional Distress: How confident are you that you can keep the emotional distress caused by your disease from interfering with the things you want to do? Select Number: 6 Other Symptoms or Health Problems: How confident are you that you can keep other symptoms or health problems from interfering with the things you want to do? Select Number: 7 Different Tasks and Activities: How confident are you that you can do the different tasks and activities needed to manage your health condition so as to reduce your need to see a doctor? Select Number: 7 Medication: How confident are you that you can do things other than just taking medication to reduce how much your illness affects your everyday life? Select Number: 7 Total Score:: 6 Nutrition Survey - Nutrition Survey Instructions Scoring Instructions: Scoring is as follows: Yes = 1 points. No = 0 point. Patient score that is >/=12 is considered to be at potential nutritional risk and could benefit from a referral to a registered dietitian. - Nutrition Survey Initial Have you lost >10 lbs over the past 2 months without trying?: No Are you following a special diet at home for diabetes, low fat, or low salt?: No Are you interested in meeting with a dietitian for help understanding your diet?: Yes Do you eat less than 3 meals a day?: No Do you eat fatty meats (pizano, sausage, ribs, etc), fried foods, desserts, large amounts of salad dressings, margarine, butter, or cheese most days?: Yes Do you have food allergies? [Enter types in comment field]: No Do you eat in restaurants more than 3 times a week?: No Do you season food with salt, seasoning salt, or garlic salt?: Yes Do you used canned, boxed, frozen meals, or soups, seasoning packets?: Yes Total Score:: 4
[2020-06-15 11:15] VITALS: BMI 46.6
[2020-06-15 11:16] VITALS: BP 118/66; PULSE 69; O2SAT 96; BMI 46.6
== END ==
PROVIDERS: PCP Internal Medicine; Referring Provider Internal Medicine Cardiovascular Disease; Visit Provider Internal Medicine Cardiovascular Disease
DX: I25.10 Atherosclerotic heart disease of native coronary artery without angina pectoris (principal); I25.2 Old myocardial infarction; Z95.5 Presence of coronary angioplasty implant and graft

== ENCOUNTER → 2020-06-29 07:40 | Outpatient (CLI) | payer MEDICARE, OTHER, SELFPAY ==
[2020-06-15 11:15] VITALS: BMI 46.6
[2020-06-22 09:49] VITALS: BMI 46.0
--- NOTE | 2020-06-29 07:41 | CT_ITS ---
STUDY: CTA CHEST REASON FOR EXAM: Female, 65 years old. abnormal cxr previous cancer hx RADIATION DOSAGE (If Supplied By Facility): CTDIvol = ( 13.85 ) mGy, DLP = ( 492.65 ) mGycm TECHNIQUE: The examination was performed with the intravenous administration of IV 100mL Isovue-370. Post-processing of the angiographic images was performed, with multiplanar reformation and 3D reconstruction. Individualized dose optimization techniques were used for this CT. COMPARISON: Chest x-ray 05/26/2020 FINDINGS: Normal enhancement of the main pulmonary artery and right and left pulmonary arteries. Normal enhancement of the bilateral peripheral pulmonary arteries. There is no demonstrated pulmonary embolism. Normal thoracic aorta and visualized great vessels. There is no demonstrated aortic dissection. Normal heart and pericardium. Normal mediastinum. Normal hilar regions. Normal visualized trachea and bronchi. The lungs are well expanded. 1 cm subpleural density in the right lower lobe on image 23 likely consistent with atelectasis or scar. Correlation with PET CT scan is recommended to exclude nodule. Follow-up CT is recommended in 6 months document stability. No other noncalcified nodule or mass Normal pleura. Normal chest wall structures. Normal osseous structures. Normal visualized upper abdomen. CT/CTA Chest W/WO Contrast IMPRESSION: 1. No CT evidence of pulmonary embolism. 2. 1 cm subpleural density in the right lower lobe likely consistent with atelectasis or scar. Correlation with PET CT scan is recommended to exclude bronchogenic carcinoma. Follow-up CT is recommended in 6 months document stability or resolution. Electronically Signed: Nj Angeles MD at 8:54 EDT Tel , Service support ,
== END ==
PROVIDERS: PCP Internal Medicine; Referring Provider Physician Assistant Medical; Visit Provider Physician Assistant Medical
DX: R91.1 Solitary pulmonary nodule (principal)
CPT/HCPCS: 71275; Q9967

== ENCOUNTER 2020-07-03 10:15 | Outpatient (RCR) | payer MEDICARE, OTHER, SELFPAY ==
[2020-06-15 11:15] VITALS: BMI 46.6
[2020-06-15 11:16] VITALS: BMI 46.6
== END 2020-07-03 23:59 ==
LOC: CR 10:15
PROVIDERS: PCP Internal Medicine; Referring Provider Internal Medicine Cardiovascular Disease; Visit Provider Internal Medicine Cardiovascular Disease
DX: Z95.5 Presence of coronary angioplasty implant and graft (principal); I25.10 Atherosclerotic heart disease of native coronary artery without angina pectoris; I25.2 Old myocardial infarction
CPT/HCPCS: 93798

== ENCOUNTER 2020-07-31 10:15 | Outpatient (RCR) | payer MEDICARE, OTHER, SELFPAY ==
[2020-06-15 11:15] VITALS: BMI 46.6
[2020-06-22 09:49] VITALS: BMI 46.0
--- NOTE | 2020-07-14 06:33 | PCM.CR.ITP ---
Diagnosis Exercise - 30-day Assessment - Visit Date of Eval: 07/14/20 Session #:: 9 - Physician Prescribed Exercise Modalities: Treadmill, Airdyne, NuStep, SciFit Frequency: 3x/week for 12 weeks [36 sessions] Intensity: 60-80% of age predicted maximum heart rate reserve Current METSs:: 3.5 increase from 2.0 Target Heart Rate:: 100-130 Current RPE:: 12-13 Maximum Excercise HR:: 97 Resting Blood Pressure: 124/58 Maximum Exercise Blood Pressure: 138/62 EKG Type: NSR with rare PACs - Outcomes & Goals Goals:: Verbalizes understanding of THR, RPE & goal METS by session 6, Documents in home exercise log/reports 30 min aerobic 5 day/wk by DC, Demonstrates accurate pulse taking by DC - Intervention & Plan Exercise Program Goals: Instruct on personal THR & RPE, Instruct on MET level & personal MET goal, Show patient to take own pulse /validate performance until accurate, Instruct on home exercise - 30-day Reassessments 30 day Reassessments:: Progressing - Physical Activity Home Exercise Physical Activity - Home Exercise: Safe Exercise, Warm-up, Self-monitoring, Cool-Down, Home Exercise > 30 min Daily, Sitting Time <3 hours/daily - Outcomes & Goals Outcomes/Goals: Demonstrates correct Warm-up/exercise Cool-Down (S3) if = 2.5 METs, Verbalizes symptoms of exercise intolerance by Session 3 (S3), Demonstrate safe equipment use (S3) & follows exercise prescrition (6) - Intervention & Plan Plan/Intervention: Instruct warm-up & cool-down if exercising at > 2 METs, Instruct on symptoms of exercise intolerance & actions to take, Instruct & monitor on saf, Assess intial functional capacity & safety risk - 30-day Reassessments 30 day Reassessments:: Progressing Nutrition - Initial Assessment Nutrition - 30-Day Assessment - Program Goals Nutrition Program Goals: LDL <100 optimal. 100 - 129 Near optimal. 130 - 159 Borderline High. 160 - 189 High. Total Cholesterol <200 desirable. 200 - 239 Borderline High. >/= 240 High. HDL < 40 Low >/=60 High. Triglycerides <150 desirable. <199 optimal. VlDL 5 - 40. HgbA1C <7%. BMI <25 Patient has diagnosis of Hyperlipidemia (ICD E78)?: Yes - Visit Date of Assessment:: 07/14/20 Session #:: 9 - Cholesterol/Lipids Triglycerides (mg/dL): 175 Total Cholesterol (mg/dL): 175 LDL Cholesterol (mg/dL): 101 HDL Cholesterol (mg/dL): 39 Determine presence & major risk factors that modify LDL goal: Hypertension or hypertensive medication, Low HDL cholesterol <40 mg/dL*, Family history of premature CHD in Male < 55 years: female <65 yearsFa, Age men > 45 years; women >/= 55 years Outcomes/Goals: Pt IDs own risk factors & lifestyle modifications by Session 10, Verbalizes symptoms of angina & response by session 3., Pt independently manages Intervention/Plan: Instruct on personal lipid levels & lipid goals/NCEP guidelines, Instruct on cholesterol Referral to dietitian:: Yes - Medical Nutrition Therapy 30-day Reassessments:: Progressing - Diabetes (Other Core Measures) Diabetes Type: Not Applicable - Weight Mgt (Other Care) Not Applicable: No Height: 5 ft 2 in Weight:: 255 lb BMI: 46.6 Diagnosis Overweight/Obesity BMI> 30% ICD-10 E66: Yes Diagnosis High BMI/Morbid Obesity BMI> 35% ICD-10 Z68: Yes Outcomes/Goals: Pt sets, maintains & shows weight loss goal & trend during rehab Intervention/Plan: Instruct on ideal BMI & set weight loss goal w/patient, Assist pt to ID & incorporate diet changes for weight loss by S9, Refer to Structured Weight Loss program as appropriate, Encourage goal of using 250-300dcal per session for weight loss 30 day Reassessments:: Progressing - Healthy Eating Habits Will attend diet classes:: Yes Outcomes/Goals:: Consume diet rich in vegs,fruits,whole grain/high fiber,fish,lean meat, Limit sat/trans fats,cholesterol & added salts & sugars Intervention/Plan:: Assess current eating habits 30-day Reassessments:: Progressing Nutrition - 60-Day Assessment Nutrition - 90-Day Assessment Nutrition - Final Assessment Medical - Initial Assessment Medical- 30-Day Assessment - Visit Date of Eval: 07/14/20 Session #:: 9 - Medication Compliance Preventative Medication(s):: Aspirin, Ticagrelor/P2Y12 inhibitor, Statin/lipid, Beta sukumar H/O mental health issues: depression, anxiety, or addiction?: No Doesn?t believe in the benefits of treatment?: No Believes medications are unnecessary or harmful?: No Has a concern about medication side effects?: No Expresses concern over the cost of medications?: No Outcomes/Goals: Verbalizes medications,desired effect & common side effects @ DC, Pt self-reports following medication regimen, Keeps card in wallet w/medications listed by DC Interventions/plans: Instruct on medication effects & side effects, Review medication list w/patient every two weeks, Instruct importance of taking meds as ordered & assist problem solving 30-day Reassessments:: Progressing - Tobacco Use Tobacco Use: Non-smoker - Hypertension Hypertension Diagnosis:: Hypertension ICD-10 I10 Resting Blood Pressure:: 124/58 [place] [employer] Hypertension Guidelines: [place] [employer] Hypertension Guidelines. Normal BP Less than 120/80. Elevated BP 120/80. Hypertension Stage 1: BP 130-139/80-89. Hypertesnion Stage 2: BP 140 or higher/90 or higher. Hypertension Crisis: BP higher than 180/120 Peak Exercise Blood Pressure:: 138/62 Outcomes/Goals: Able to verbalize/achieve optimal blood pressure <130/80, Incorporates diet changes & exercise for blood pressure control by DC Interventions/plan: Instruct on optimal blood pressure, hypertension & medications, Instruct on effects of sodium, alcohol, stress, exercise &hypertension 30 day Reassessments:: Progressing - Tobacco Cessation Referral Smoking Cessation Referral:: No Individual Education/Counseling:: No Education Schedule Given:: Yes Medical- 60-Day Assessment Medical- 90-Day Assessment Medical - Final Assessment Psychosocial - Initial Assess Psychosocial - 30-Day Assess - VIsit Date of Eval: 07/14/20 Session #:: 9 Not Applicable: Yes History of previous Mental disease:: No - Psychosocial Test Tool Used:: PHQ-9 Questionnaire phq-9 Severity: Severity. 1-4 Minimal Depression. 5-9 Mild Depression. 10-14 Moderate Depression. 15-19 Moderately Sever Depression. 20-27 Severe Depression. Rule: - Referral to Behavioral Health PS - Interventions: Yes Attend Stress Management Classes, No Referral to Behavioral Health if PHQ-9 score >9:, No Referral to [facility], No Referral to Physician if PHQ-9 if score is 5-9: - Outcomes/Goals: See list Psychosocial Outcomes/Goals:: ID's personal stressors & 2 strategies to manage stress by discharge - Intervention/Plan: See List Interventions/Plan:: Assess stressors,coping strategies & signs of derpression on admission, Instruct/assist pt to develop coping & personal stress Mgt strategies, Instruct patient to recognize signs & symptoms of depression, Instruct patient to recog - 30-day Reassessments: 30 day Reassessments:: Progressing Psychosocial - 60-Day Assess Psychosocial - 90-Day Assess Psychosocial - Final Assessmen Patient Health Questionnaire 30-Day Re-eval Assessment 1. Little interest or pleasure in doing things: Not at all 2. Feeling down, depressed, or hopeless: Not at all 3. Trouble falling or staying asleep, or sleeping too much: Not at all 4. Feeling tired or having little energy: Not at all 5. Poor appetite or overeating: Several days 6. Feeling bad about yourself -- or that you are a failure or have let yourself or your family down: Not at all 7. Trouble concentrating on things, such as reading the newspaper or watching television: Not at all 8. Moving or speaking so slowly that other people could have noticed. Or the opposite - being so fidgety or restless that you have been moving around a lot more than usual: Not at all 9. Thoughts that you would be better off , or of hurting yourself in some way: Not at all Total Score: 1 Self-Efficacy 30-Day Re-eval Assessment We would like to know how confident you are in doing certain activities. Please select your confidence level for:: Select your confidence level for the following using the scale 1-10 where 1 is not at all confident and 10 is totally confident. Your score is the average of all 6 responses. Fatigue: How confident are you that you can keep the fatigue caused by your disease from interfering with the things you want to do? Select Number: 7 Physical Discomfort or Pain: How confident are you that you can keep the physical discomfort or pain of your disease from interfering with the things you want to do? Select Number: 8 Emotional Distress: How confident are you that you can keep the emotional distress caused by your disease from interfering with the things you want to do? Select Number: 7 Other Symptoms or Health Problems: How confident are you that you can keep other symptoms or health problems from interfering with the things you want to do? Select Number: 8 Different Tasks and Activities: How confident are you that you can do the different tasks and activities needed to manage your health condition so as to reduce your need to see a doctor? Select Number: 9 Medication: How confident are you that you can do things other than just taking medication to reduce how much your illness affects your everyday life? Select Number: 9 Total Score:: 8 Nutrition Survey
[2020-07-14 06:38] VITALS: BP 124/58; BP 138/62; BMI 46.6
== END 2020-08-03 23:59 ==
LOC: CR 10:15
PROVIDERS: PCP Internal Medicine; Referring Provider Internal Medicine Cardiovascular Disease; Visit Provider Internal Medicine Cardiovascular Disease
DX: I25.10 Atherosclerotic heart disease of native coronary artery without angina pectoris (principal); Z95.5 Presence of coronary angioplasty implant and graft; I25.2 Old myocardial infarction
CPT/HCPCS: 93798

== ENCOUNTER → 2020-08-17 11:24 | Outpatient (CLI) | payer MEDICARE, OTHER, SELFPAY ==
[2020-08-14 10:54] VITALS: BMI 46.3
[2020-08-17 10:23] VITALS: BMI 46.0
[2020-08-17 13:15] LABS: AST(SGOT) 22 U/L (15-37); Alanine Aminotransfer ALT/SGPT 22 U/L (13-56); Albumin, Serum 3.5 g/dL (3.2-5.0); Alkaline Phosphatase 104 U/L (45-117); Bilirubin, Direct 0.13 mg/dL (0.00-0.30); Cholesterol 105 mg/dL (200); Globulin 4.3 g/dL (2.2-4.2); High Density Lipoprotein 39 mg/dL; Protein, Total 7.8 g/dL (6.4-8.2); Triglycerides 181 mg/dL; Very Low Density Lipoprotein 36 mg/dL (5-40)
== END ==
PROVIDERS: PCP Internal Medicine; Referring Provider Physician Assistant Medical; Visit Provider Physician Assistant Medical
DX: I10 Essential (primary) hypertension (principal); I25.10 Atherosclerotic heart disease of native coronary artery without angina pectoris; I25.2 Old myocardial infarction
CPT/HCPCS: 36415; 80061; 80076

== ENCOUNTER 2020-09-02 10:15 | Outpatient (RCR) | payer MEDICARE, OTHER, SELFPAY ==
[2020-06-22 09:49] VITALS: BMI 46.0
[2020-07-14 06:38] VITALS: BMI 46.6
[2020-08-04 00:35] VITALS: BP 124/58; BP 138/62
--- NOTE | 2020-08-14 10:48 | CR.ITP_ITS ---
Diagnosis Exercise - 60-day Assessment - Visit Date of Eval: 08/14/20 Session #:: 17 - Physician Prescribed Exercise Modalities: Treadmill, NuStep, SciFit Frequency: 3x/week for 12 weeks [36 sessions] Intensity: 60-80% of age predicted maximum heart rate reserve Current METSs:: 3.5 unchanged per patient's request Current RPE:: 11-3 Maximum Excercise HR:: 100-130 Resting Blood Pressure: 124/80 Maximum Exercise Blood Pressure: 140/80 EKG Type: NSR to sinus tach with rare PAC and PVC - Outcomes & Goals Goals:: Verbalizes understanding of THR, RPE & goal METS by session 6, Documents in home exercise log/reports 30 min aerobic 5 day/wk by DC, Demonstrates accurate pulse taking by DC - Intervention & Plan Exercise Program Goals: Instruct on personal THR & RPE, Instruct on MET level & personal MET goal, Show patient to take own pulse /validate performance until accurate, Instruct on home exercise - 30-day Reassessments 30 day Reassessments:: Not Met - Physical Activity Home Exercise Physical Activity - Home Exercise: Safe Exercise, Warm-up, Self-monitoring, Cool-Down, Home Exercise > 30 min Daily, Sitting Time <3 hours/daily - Outcomes & Goals Outcomes/Goals: Demonstrates correct Warm-up/exercise Cool-Down (S3) if = 2.5 M ETs, Verbalizes symptoms of exercise intolerance by Session 3 (S3), Demonstrate safe equipment use (S3) & follows exercise prescrition (6) - Intervention & Plan Plan/Intervention: Instruct warm-up & cool-down if exercising at > 2 METs, Instruct on symptoms of exercise intolerance & actions to take, Instruct & monitor on saf, Assess intial functional capacity & safety risk - 30-day Reassessments 30 day Reassessments:: Not Met Nutrition - Initial Assessment Nutrition - 30-Day Assessment Nutrition - 60-Day Assessment - Program Goals Nutrition Program Goals: LDL <100 optimal. 100 - 129 Near optimal. 130 - 159 Borderline High. 160 - 189 High. Total Cholesterol <200 desirable. 200 - 239 Borderline High. >/= 240 High. HDL < 40 Low >/=60 High. Triglycerides <150 desirable. <199 optimal. VlDL 5 - 40. HgbA1C <7%. BMI <25 Patient has diagnosis of Hyperlipidemia (ICD E78)?: Yes - Visit Date of Assessment:: 08/14/20 Session #:: 17 - no recent labs drawn - Cholesterol/Lipids Determine presence & major risk factors that modify LDL goal: Hypertension or hypertensive medication, Family history of premature CHD in Male < 55 years: female <65 yearsFa, Age men > 45 years; women >/= 55 years Outcomes/Goals: Pt IDs own risk factors & lifestyle modifications by Session 10, Verbalizes symptoms of angina & response by session 3., Pt independently manages Intervention/Plan: Instruct on personal lipid levels & lipid goals/NCEP guidelines, Instruct on cholesterol Referral to dietitian:: Yes 30-day Reassessments:: Progressing - Diabetes (Other Core Measures) Diabetes Type: Not Applicable - Weight Mgt (Other Care) Height: 5 ft 2 in Weight:: 253 lb BMI: 46.3 Diagnosis Overweight/Obesity BMI> 30% ICD-10 E66: Yes Diagnosis High BMI/Morbid Obesity BMI> 35% ICD-10 Z68: Yes Outcomes/Goals: Pt sets, maintains & shows weight loss goal & trend during rehab Intervention/Plan: Instruct on ideal BMI & set weight loss goal w/patient, Assist pt to ID & incorporate diet changes for weight loss by S9, Refer to Structured Weight Loss program as appropriate, Encourage goal of using 250- 300dcal per session for weight loss 30 day Reassessments:: Progressing - Healthy Eating Habits Will attend diet classes:: Yes Outcomes/Goals:: Limit sat/trans fats,cholesterol & added salts & sugars Intervention/Plan:: Assess current eating habits 30-day Reassessments:: Progressing - Education Gave educational materials for:: Healthy eating Nutrition - 90-Day Assessment Nutrition - Final Assessment Medical - Initial Assessment Medical- 30-Day Assessment Medical- 60-Day Assessment - Visit Date of Eval: 08/14/20 Session #:: 17 - Medication Compliance Preventative Medication(s):: Aspirin, Ticagrelor/P2Y12 inhibitor, Statin/lipid, Beta sukumar H/O mental health issues: depression, anxiety, or addiction?: No Doesn?t believe in the benefits of treatment?: No Believes medications are unnecessary or harmful?: No Has a concern about medication side effects?: No Expresses concern over the cost of medications?: No Outcomes/Goals: Verbalizes medications,desired effect & common side effects @ DC, Pt self-reports following medication regimen, Keeps card in wallet w/medications listed by DC Interventions/plans: Instruct on medication effects & side effects, Review medication list w/patient every two weeks, Instruct importance of taking meds as ordered & assist problem solving 30-day Reassessments:: Progressing - Tobacco Use Tobacco Use: Non-smoker - Hypertension Hypertension Diagnosis:: Hypertension ICD-10 I10 Resting Blood Pressure:: 120/80 [place] [employer] Hypertension Guidelines: [place] [employer] Hypertension Guidelines. Normal BP Less than 120/80. Elevated BP 120/80. Hypertension Stage 1: BP 130-139/80-89. Hypertesnion Stage 2: BP 140 or higher/90 or higher. Hypertension Crisis: BP higher than 180/120 Peak Exercise Blood Pressure:: 140/80 Outcomes/Goals: Able to verbalize/achieve optimal blood pressure <130/80, Incorp orates diet changes & exercise for blood pressure control by DC Interventions/plan: Instruct on optimal blood pressure, hypertension & medications, Instruct on effects of sodium, alcohol, stress, exercise &hypertension 30 day Reassessments:: Progressing - Tobacco Cessation Referral Smoking Cessation Referral:: No Individual Education/Counseling:: No Education Schedule Given:: Yes Medical- 90-Day Assessment Medical - Final Assessment Psychosocial - Initial Assess Psychosocial - 30-Day Assess Psychosocial - 60-Day Assess - VIsit Date of Eval: 08/14/20 Session #:: 17 Not Applicable: Yes History of previous Mental disease:: No - Psychosocial Test Tool Used:: PHQ-9 Questionnaire phq-9 Severity: Severity. 1-4 Minimal Depression. 5-9 Mild Depression. 10-14 Moderate Depression. 15-19 Moderately Sever Depression. 20-27 Severe Depression. Rule: - Referral to Behavioral Health PS - Interventions: Yes Attend Stress Management Classes, No Referral to Behavioral Health if PHQ-9 score >9:, No Referral to [facility], No Referral to Physician if PHQ-9 if score is 5-9: - Outcomes/Goals: See list Psychosocial Outcomes/Goals:: ID's personal stressors & 2 strategies to manage stress by discharge - Intervention/Plan: See List Interventions/Plan:: Assess stressors,coping strategies & signs of derpression on admission, Instruct/assist pt to develop coping & personal stress Mgt strategies, Instruct patient to recognize signs & symptoms of depression, Instruct patient to recog - 30-day Reassessments: 30 day Reassessments:: Progressing Psychosocial - 90-Day Assess Psychosocial - Final Assessmen Patient Health Questionnaire 60-Day Re-eval Assessment 1. Little interest or pleasure in doing things: Not at all 2. Feeling down, depressed, or hopeless: Not at all 3. Trouble falling or staying asleep, or sleeping too much: Not at all 4. Feeling tired or having little energy: Several days 5. Poor appetite or overeating: Several days 6. Feeling bad about yourself -- or that you are a failure or have let yourself or your family down: Not at all 7. Trouble concentrating on things, such as reading the newspaper or watching television: Not at all 8. Moving or speaking so slowly that other people could have noticed. Or the opposite - being so fidgety or restless that you have been moving around a lot more than usual: Not at all 9. Thoughts that you would be better off , or of hurting yourself in some way: Not at all How difficult have these problems made it for you to do your work, take care of things at home, or get along with other people?: Somewhat difficult Total Score: 2 Self-Efficacy 60-Day Re-eval Assessment We would like to know how confident you are in doing certain activities. Please select your confidence level for:: Select your confidence level for the following using the scale 1-10 where 1 is not at all confident and 10 is totally confident. Your score is the average of all 6 responses. Fatigue: How confident are you that you can keep the fatigue caused by your disease from interfering with the things you want to do? Select Number: 7 Physical Discomfort or Pain: How confident are you that you can keep the physical discomfort or pain of your disease from interfering with the things you want to do? Select Number: 8 Emotional Distress: How confident are you that you can keep the emotional distress caused by your disease from interfering with the things you want to do? Select Number: 8 Other Symptoms or Health Problems: How confident are you that you can keep other symptoms or health problems from interfering with the things you want to do? Select Number: 8 Different Tasks and Activities: How confident are you that you can do the different tasks and activities needed to manage your health condition so as to reduce your need to see a doctor? Select Number: 9 Medication: How confident are you that you can do things other than just taking medication to reduce how much your illness affects your everyday life? Select Number: 9 Total Score:: 8 Nutrition Survey
[2020-08-14 10:54] VITALS: BP 120/80; BP 124/80; BP 140/80; BMI 46.3
== END 2020-09-02 23:59 ==
LOC: CR 10:15
PROVIDERS: PCP Internal Medicine; Referring Provider Internal Medicine Cardiovascular Disease; Visit Provider Internal Medicine Cardiovascular Disease
DX: I25.2 Old myocardial infarction (principal); I25.10 Atherosclerotic heart disease of native coronary artery without angina pectoris; Z95.5 Presence of coronary angioplasty implant and graft
CPT/HCPCS: 93798

== ENCOUNTER 2020-10-02 10:30 | Outpatient (RCR) | payer MEDICARE, OTHER, SELFPAY ==
[2020-08-14 10:54] VITALS: BMI 46.3
[2020-08-17 10:23] VITALS: BMI 46.0
[2020-09-03 00:25] VITALS: BP 120/80; BP 124/80; BP 140/80
--- NOTE | 2020-09-14 07:09 | PCM.CR.ITP ---
Diagnosis Exercise - 90-day Assessment - Visit Date of Eval: 09/14/20 Session #:: 26 - Patient has missed 6 scheduled sessions. - Physician Prescribed Exercise Modalities: Treadmill, Airdyne, NuStep Frequency: 3x/week for 12 weeks [36 sessions] Intensity: 60-80% of age predicted maximum heart rate reserve Current METSs:: 3.5 unchanged due to knee pain/discomfort Target Heart Rate:: 100-130 Current RPE:: 12-13 Maximum Excercise HR:: 98 Resting Blood Pressure: 112/62 Maximum Exercise Blood Pressure: 150/80 EKG Type: NSR with occasional PACs - Outcomes & Goals Goals:: Verbalizes understanding of THR, RPE & goal METS by session 6, Documents in home exercise log/reports 30 min aerobic 5 day/wk by DC, Demonstrates accurate pulse taking by DC - Intervention & Plan Exercise Program Goals: Instruct on personal THR & RPE, Instruct on MET level & personal MET goal, Show patient to take own pulse /validate performance until accurate, Instruct on home exercise - 30-day Reassessments 30 day Reassessments:: Met - Physical Activity Home Exercise Physical Activity - Home Exercise: Safe Exercise, Warm-up, Self-monitoring, Cool-Down, Home Exercise > 30 min Daily, Sitting Time <3 hours/daily - Outcomes & Goals Outcomes/Goals: Demonstrates correct Warm-up/exercise Cool-Down (S3) if = 2.5 METs, Verbalizes symptoms of exercise intolerance by Session 3 (S3), Demonstrate safe equipment use (S3) & follows exercise prescrition (6) - Intervention & Plan Plan/Intervention: Instruct warm-up & cool-down if exercising at > 2 METs, Instruct on symptoms of exercise intolerance & actions to take, Instruct & monitor on saf, Assess intial functional capacity & safety risk - 30-day Reassessments 30 day Reassessments:: Met Nutrition - Initial Assessment Nutrition - 30-Day Assessment Nutrition - 60-Day Assessment Nutrition - 90-Day Assessment - Program Goals Nutrition Program Goals: LDL <100 optimal. 100 - 129 Near optimal. 130 - 159 Borderline High. 160 - 189 High. Total Cholesterol <200 desirable. 200 - 239 Borderline High. >/= 240 High. HDL < 40 Low >/=60 High. Triglycerides <150 desirable. <199 optimal. VlDL 5 - 40. HgbA1C <7%. BMI <25 Patient has diagnosis of Hyperlipidemia (ICD E78)?: Yes - Visit Date of Assessment:: 09/14/20 Session #:: 26 - Cholesterol/Lipids Determine presence & major risk factors that modify LDL goal: Hypertension or hypertensive medication, Family history of premature CHD in Male < 55 years: female <65 yearsFa, Age men > 45 years; women >/= 55 years Outcomes/Goals: Pt IDs own risk factors & lifestyle modifications by Session 10, Verbalizes symptoms of angina & response by session 3., Pt independently manages Intervention/Plan: Instruct on personal lipid levels & lipid goals/NCEP guidelines, Instruct on cholesterol Referral to dietitian:: Yes 30-day Reassessments:: Progressing - Diabetes (Other Core Measures) Diabetes Type: Diagnosis Type II ICD-10 E11 Fasting blood glucose:: 141 Hgb A1C (4.2 - 6.3): 5.8 Non-Insulin Dependent?: Yes Do you monitor your blood sugar at home?: Yes Referral to Diabetic Clinic:: Yes Outcomes/Goals:: Able to state symptoms of, Able to state, Able to state Intervention/Plan:: Instruct on, Refer to, Instruct on 30-day Reassessments:: Progressing - Weight Mgt (Other Care) Not Applicable: No Height: 5 ft 2 in Weight:: 256 lb BMI: 46.7 Diagnosis Overweight/Obesity BMI> 30% ICD-10 E66: Yes Diagnosis High BMI/Morbid Obesity BMI> 35% ICD-10 Z68: Yes Outcomes/Goals: Pt sets, maintains & shows weight loss goal & trend during rehab Intervention/Plan: Instruct on ideal BMI & set weight loss goal w/patient, Assist pt to ID & incorporate diet changes for weight loss by S9, Refer to Structured Weight Loss program as appropriate, Encourage goal of using 250-300dcal per session for weight loss 30 day Reassessments:: Progressing - Healthy Eating Habits Will attend diet classes:: Yes Outcomes/Goals:: Consume diet rich in vegs,fruits,whole grain/high fiber,fish,lean meat, Limit sat/trans fats,cholesterol & added salts & sugars Intervention/Plan:: Assess current eating habits 30-day Reassessments:: Progressing - Education Gave educational materials for:: Signs & symptoms of hypoglycemia, Signs & symptoms of hyperglycemia, Relate diabetes to coronary artery disease, Healthy eating Nutrition - Final Assessment Medical - Initial Assessment Medical- 30-Day Assessment Medical- 60-Day Assessment Medical- 90-Day Assessment - Visit Date of Eval: 09/14/20 Session #:: 26 - Medication Compliance Preventative Medication(s):: Aspirin, Ticagrelor/P2Y12 inhibitor, Statin/lipid, Beta sukumar H/O mental health issues: depression, anxiety, or addiction?: No Doesn?t believe in the benefits of treatment?: No Believes medications are unnecessary or harmful?: No Has a concern about medication side effects?: No Expresses concern over the cost of medications?: No Outcomes/Goals: Verbalizes medications,desired effect & common side effects @ DC, Pt self-reports following medication regimen, Keeps card in wallet w/medications listed by DC Interventions/plans: Instruct on medication effects & side effects, Review medication list w/patient every two weeks, Instruct importance of taking meds as ordered & assist problem solving 30-day Reassessments:: Met - Tobacco Use Tobacco Use: Non-smoker - Hypertension Hypertension Diagnosis:: Hypertension ICD-10 I10 Resting Blood Pressure:: 112/62 [place] [employer] Hypertension Guidelines: [place] [employer] Hypertension Guidelines. Normal BP Less than 120/80. Elevated BP 120/80. Hypertension Stage 1: BP 130-139/80-89. Hypertesnion Stage 2: BP 140 or higher/90 or higher. Hypertension Crisis: BP higher than 180/120 Peak Exercise Blood Pressure:: 150/80 Outcomes/Goals: Able to verbalize/achieve optimal blood pressure <130/80, Incorporates diet changes & exercise for blood pressure control by DC Interventions/plan: Instruct on optimal blood pressure, hypertension & medications, Instruct on effects of sodium, alcohol, stress, exercise &hypertension 30 day Reassessments:: Met - Tobacco Cessation Referral Smoking Cessation Referral:: No Individual Education/Counseling:: No Education Schedule Given:: Yes Medical - Final Assessment Psychosocial - Initial Assess Psychosocial - 30-Day Assess Psychosocial - 60-Day Assess Psychosocial - 90-Day Assess - VIsit Date of Eval: 09/14/20 Session #:: 26 Not Applicable: Yes History of previous Mental disease:: No - Psychosocial Test Tool Used:: PHQ-9 Questionnaire phq-9 Severity: Severity. 1-4 Minimal Depression. 5-9 Mild Depression. 10-14 Moderate Depression. 15-19 Moderately Sever Depression. 20-27 Severe Depression. Rule: - Referral to Behavioral Health PS - Interventions: Yes Attend Stress Management Classes, No Referral to Behavioral Health if PHQ-9 score >9:, No Referral to [facility], No Referral to Physician if PHQ-9 if score is 5-9: - Outcomes/Goals: See list Psychosocial Outcomes/Goals:: ID's personal stressors & 2 strategies to manage stress by discharge - Intervention/Plan: See List Interventions/Plan:: Assess stressors,coping strategies & signs of derpression on admission, Instruct/assist pt to develop coping & personal stress Mgt strategies, Instruct patient to recognize signs & symptoms of depression, Instruct patient to recog - 30-day Reassessments: 30 day Reassessments:: Met Psychosocial - Final Assessmen Patient Health Questionnaire 90-Day Re-eval Assessment 1. Little interest or pleasure in doing things: Not at all 2. Feeling down, depressed, or hopeless: Not at all 3. Trouble falling or staying asleep, or sleeping too much: Not at all 4. Feeling tired or having little energy: Not at all 5. Poor appetite or overeating: Several days 6. Feeling bad about yourself -- or that you are a failure or have let yourself or your family down: Not at all 7. Trouble concentrating on things, such as reading the newspaper or watching television: Not at all 8. Moving or speaking so slowly that other people could have noticed. Or the opposite - being so fidgety or restless that you have been moving around a lot more than usual: Not at all 9. Thoughts that you would be better off , or of hurting yourself in some way: Not at all How difficult have these problems made it for you to do your work, take care of things at home, or get along with other people?: Not difficult at all Total Score: 1 Self-Efficacy 90-Day Re-eval Assessment We would like to know how confident you are in doing certain activities. Please select your confidence level for:: Select your confidence level for the following using the scale 1-10 where 1 is not at all confident and 10 is totally confident. Your score is the average of all 6 responses. Fatigue: How confident are you that you can keep the fatigue caused by your disease from interfering with the things you want to do? Select Number: 9 Physical Discomfort or Pain: How confident are you that you can keep the physical discomfort or pain of your disease from interfering with the things you want to do? Select Number: 9 Emotional Distress: How confident are you that you can keep the emotional distress caused by your disease from interfering with the things you want to do? Select Number: 9 Other Symptoms or Health Problems: How confident are you that you can keep other symptoms or health problems from interfering with the things you want to do? Select Number: 10 Different Tasks and Activities: How confident are you that you can do the different tasks and activities needed to manage your health condition so as to reduce your need to see a doctor? Select Number: 10 Medication: How confident are you that you can do things other than just taking medication to reduce how much your illness affects your everyday life? Select Number: 10 Total Score:: 9 Nutrition Survey
[2020-09-14 07:16] VITALS: BP 112/62; BP 150/80; BMI 46.7
== END 2020-10-03 23:59 ==
LOC: CR 10:30
PROVIDERS: PCP Internal Medicine; Referring Provider Internal Medicine Cardiovascular Disease; Visit Provider Internal Medicine Cardiovascular Disease
DX: Z95.5 Presence of coronary angioplasty implant and graft (principal); I25.10 Atherosclerotic heart disease of native coronary artery without angina pectoris; I25.2 Old myocardial infarction
CPT/HCPCS: 93798

== ENCOUNTER 2021-05-04 06:42 | Outpatient (CLI) | payer MEDICARE, OTHER, SELFPAY ==
[2020-09-14 07:16] VITALS: BMI 46.7
[2021-05-04 08:44] LABS: AST(SGOT) 17 U/L (15-37); Alanine Aminotransfer ALT/SGPT 22 U/L (13-56); Albumin, Serum 3.3 g/dL (3.2-5.0); Alkaline Phosphatase 77 U/L (45-117); Bilirubin, Direct 0.14 mg/dL (0.00-0.30); Cholesterol 183 mg/dL (200); Globulin 4.7 g/dL (2.2-4.2); High Density Lipoprotein 33 mg/dL; Triglycerides 170 mg/dL; Very Low Density Lipoprotein 34 mg/dL (5-40)
== END 2021-05-04 23:59 | disposition home or self-care (01) ==
LOC: LAB 06:43
PROVIDERS: PCP Internal Medicine; Referring Provider Internal Medicine Cardiovascular Disease; Visit Provider Internal Medicine Cardiovascular Disease
DX: I10 Essential (primary) hypertension (principal)
CPT/HCPCS: 36415; 80061; 80076

== ENCOUNTER → 2021-11-05 | Outpatient (CLI) | payer MEDICARE, OTHER, SELFPAY ==
[2020-09-14 07:16] VITALS: BMI 46.7
[2021-11-05 16:47] LABS: AST(SGOT) 28 U/L (15-37); Alanine Aminotransfer ALT/SGPT 30 U/L (13-56); Albumin, Serum 3.4 g/dL (3.2-5.0); Alkaline Phosphatase 70 U/L (45-117); Bilirubin, Direct 0.05 mg/dL (0.00-0.30); Cholesterol 137 mg/dL (200); Globulin 4.4 g/dL (2.2-4.2); High Density Lipoprotein 34 mg/dL; Protein, Total 7.8 g/dL (6.4-8.2); Triglycerides 222 mg/dL; Very Low Density Lipoprotein 44 mg/dL (5-40)
== END | disposition home or self-care (01) ==
LOC: LAB 14:16
PROVIDERS: PCP Internal Medicine; Referring Provider Internal Medicine Cardiovascular Disease; Visit Provider Internal Medicine Cardiovascular Disease
DX: E78.5 Hyperlipidemia, unspecified (principal)
CPT/HCPCS: 36415; 80061; 80076

== ENCOUNTER → 2022-07-11 | Outpatient (CLI) | payer MEDICARE, SELFPAY ==
[2020-09-14 07:16] VITALS: BMI 46.7
[2022-07-11 07:45] LABS: AST(SGOT) 31 U/L (15-37); Alanine Aminotransfer ALT/SGPT 32 U/L (13-56); Albumin, Serum 3.3 g/dL (3.2-5.0); Alkaline Phosphatase 69 U/L (45-117); Bilirubin, Direct 0.08 mg/dL (0.00-0.30); Cholesterol 165 mg/dL (200); Globulin 4.5 g/dL (2.2-4.2); High Density Lipoprotein 37 mg/dL; Protein, Total 7.8 g/dL (6.4-8.2); Triglycerides 173 mg/dL; Very Low Density Lipoprotein 35 mg/dL (5-40)
== END | disposition home or self-care (01) ==
LOC: LAB 07:02
PROVIDERS: PCP Internal Medicine; Referring Provider Internal Medicine Cardiovascular Disease; Visit Provider Internal Medicine Cardiovascular Disease
DX: E78.00 Pure hypercholesterolemia, unspecified (principal)
CPT/HCPCS: 36415; 80061; 80076

== ENCOUNTER → 2024-06-06 | Outpatient (CLI) | payer MEDICARE, SELFPAY ==
[2023-07-12 16:25] VITALS: BMI 46.7
[2024-06-06 12:20] LABS: ALB/GLOB Ratio 1.1 RATIO (0.9-2.4); AST(SGOT) 28 U/L (<=31); Alanine Aminotransfer ALT/SGPT 15 U/L (<=34); Albumin, Serum 3.9 g/dL (3.4-4.8); Alkaline Phosphatase 65 U/L (35-104); Anion Gap 11 (5-15); BUN 20 mg/dL (4-19); BUN/Creat Ratio 20.8 RATIO (10-20); Calcium,Total 9.2 mg/dL (7.6-11.0); Carbon Dioxide 24.5 mmol/L (21.0-32.0); Chloride 103 mmol/L (98-108); Creatinine, Serum 0.97 mg/dL (0.70-1.20); EST Glomerular Filtration Rate 63 (>60); Globulin 3.6 g/dL (2.2-4.2); Glucose 95 mg/dL (70-99); Potassium 4.8 mmol/L (3.3-5.1); Protein, Total 7.5 g/dL (5.9-8.4); Sodium Level 139 mmol/L (133-145); Total Bilirubin 0.45 mg/dL (0.00-1.30)
[2024-06-06 12:55] LABS: Cholesterol 180 mg/dL (<=200); High Density Lipoprotein 40 mg/dL; Low Density Lipoprotein Calc. 112 mg/dL; Triglycerides 141 mg/dL; Very Low Density Lipoprotein 28 mg/dL (5-40); cholesterol:hdl ratio screen 4.51
== END | disposition home or self-care (01) ==
LOC: LAB 08:51
PROVIDERS: PCP Internal Medicine; Referring Provider Physician Assistant Medical; Visit Provider Physician Assistant Medical
DX: E78.5 Hyperlipidemia, unspecified (principal); Z95.5 Presence of coronary angioplasty implant and graft
CPT/HCPCS: 36415; 80053; 80061